=== PATIENT | male | born 1965 | race Caucasian/White ===

== ENCOUNTER 2022-03-06 18:35 | Emergency (ER) | payer OTHER, SELFPAY ==
--- NOTE | ~2022-03-06 | US_ITS ---
EXAMINATION: US VENOUS ULTRASOUND WITH DOPPLER LOWER EXTREMITY, RIGHT CLINICAL INFORMATION: History of DVT with pain and swelling in the right lower extremity. COMPARISON: None TECHNIQUE: Ultrasound of the deep veins is performed from the hip to the calf with compression sonography and color and pulse Doppler assessment. Spectral analysis with color-flow imaging is performed. FINDINGS: There is normal venous compression and respiratory variation and augmented flow. The visualized common femoral vein, superficial femoral vein, profunda femoral vein, popliteal vein, and the trifurcation region shows no evidence of deep venous thrombosis. There is no significant popliteal fossa cyst. If the patient's symptoms persist, followup ultrasound in 5 days 7 days might be of value to exclude proximal propagation from a non-visualized calf vein. US/US venous duplex LE RT IMPRESSION: No DVT demonstrated in the right lower extremity.
[2022-03-06 19:38] VITALS: BP 165/105; PULSE 85; RESP 18; TEMP 36.7; O2SAT 97; BMI 32.5
--- NOTE | 2022-03-06 19:44 | ECG_ITS ---
Test Reason : CHEST PAIN Blood Pressure : / mmHG Vent. Rate : 080 BPM Atrial Rate : 080 BPM P-R Int : 196 ms QRS Dur : 102 ms QT Int : 368 ms P-R-T Axes : -25 037 043 degrees QTc Int : 424 ms Normal sinus rhythm RSR' or QR pattern in V1 suggests right ventricular conduction delay Otherwise normal ECG When compared with ECG of 14-MAR-2014 09:13, [place] interval has decreased T wave amplitude has increased in Anterior leads Referred By: Generic ED Physician Electronically Signed By:ODALYS MEANS MD
[2022-03-06 20:10] LABS: MANUAL DIFF FLAG NO
[2022-03-06 20:29] LABS: Alanine Aminotransferase 24 U/L (0-40); Albumin Level 4.5 g/dL (3.5-5.0); Alkaline Phosphatase 85 U/L (39-117); Anion Gap 14 (12-20); Aspartate Amino Transferase 29 U/L (5-37); Bilirubin Total 0.9 mg/dL (0.0-1.0); Blood Urea Nitrogen 10 mg/dL (9-16); Calcium 9.5 mg/dL (8.4-10.2); Carbon Dioxide 24 mmol/L (22-29); Chloride 106 mmol/L (96-108); Creatinine Clr Calc Pharmacy 123.2; Estimated Glomerular Filt Rate > 60; Glucose Random 99 mg/dL (60-115); Magnesium 2.2 mg/dL (1.6-2.6); Potassium 3.9 mmol/L (3.3-5.1); Sodium 140 mmol/L (135-145)
[2022-03-06 20:31] LABS: Basophils Absolute Auto 0.1 X10*3/uL (0.0-0.2); Basophils Percent Auto 1.2 % (0-2); Eosinophils Absolute Auto 0.1 X10*3/uL (0.0-0.4); Eosinophils Percent Auto 0.9 % (0-4); Hemoglobin 14.8 g/dl (14.0-18.0); Imm Gran Abs Auto 0.12 X10*3/uL (0.00-0.03); Imm Gran Pct Auto 1.3 % (0.0-0.4); Lymphocytes Absolute Auto 1.5 X10*3/uL (1.2-4.9); Lymphocytes Percent Auto 15.9 % (20-40); Mean Corpuscular HGB Conc 34.4 g/dl (31.0-36.0); Mean Corpuscular Hemoglobin 29.7 pg (27.0-33.0); Mean Corpuscular Volume 86.2 fL (80.0-98.0); Mean Platelet Volume 9.2 fL (9.4-12.4); Monocytes Absolute Auto 0.8 X10*3/uL (0.1-1.2); Neutrophils Absolute Auto 6.8 x10*3/uL (2.0-8.3); Neutrophils Percent Auto 72.7 % (45-73); Platelet Count 252 X10*3/uL (160-400); Red Blood Count 4.99 X10*6/uL (4.60-5.80); Red Cell Distribution Width 13.3 % (11.0-16.0); White Blood Count 9.4 X10*3/uL (4.8-10.8)
[2022-03-06 20:32] LABS: Troponin-I High Sensitivity 6.3 ng/L (<3.5-35.0)
[2022-03-06 20:35] LABS: B Type Natriuretic Peptide 10 pg/mL (<100)
[2022-03-06 21:35] VITALS: BP 156/104; PULSE 85; RESP 18; TEMP 37.2; O2SAT 99
--- NOTE | 2022-03-06 21:37 | PC.NURSE ---
pt retriaged completed, pt reports worsening right leg pain, HTN - pt reports that his blood pressure has been running high recently despite taking medication as prescribed. pt declined tylenol.
--- NOTE | 2022-03-06 22:21 | ED_ITS ---
HPI - Extremity Problem General Chief complaint: Extremity Problem Stated complaint: Left leg pain history of blood clots Time Seen by Provider: 03/06/22 22:20 Source: patient Mode of arrival: ambulatory Limitations: no limitations History of Present Illness HPI Narrative: Patient with history of chronic osteoarthritis, history of PE, and hypertension comes here for chronic right knee pain radiating to the whole leg patient had left knee and hip replacement for same unable to follow with [facility] no leg swelling also complaining of mild chest pain off and on increased anxiety. No shortness of breath no cough no fever or chills Related Data Previous Rx's Medication Instructions Recorded tramadol 50 mg tablet 50 mg PO Q6H PRN pain #20 tabs 03/06/22 Allergies Allergy/AdvReac Type Severity Reaction Status Date / Time No Known Allergies Allergy Verified 03/06/22 19:38 [No Known Allergies*] Review of Systems Review of Systems: Yes all other systems are reviewed and are negative [facility] Social History Social History Advance Directives: No Physical Exam Vital Signs: Vital Signs: Last Vital Signs Temp 99 F 03/06/22 22:26 Pulse 80 03/06/22 22:26 Resp 16 03/06/22 22:26 BP 172/110 H 03/06/22 22:26 Pulse Ox 97 03/06/22 22:26 O2 Del Method 03/06/22 22:26 BMI result Body Mass Index 32.5 Appearance: Alert. Oriented X3. No acute distress. Eyes: PERRLA, No Nystagmus ENT: Pharynx normal. Oral Mucosa moist Neck: Normal inspection. Neck supple. CVS: Normal heart rate and rhythm. Pulses normal. Respiratory: No respiratory distress. Equal air entry bilateral, no wheezing/rales/rhonchi Abdomen: Soft and nontender. Bowel sounds are present, no mass palpable, no CVA tenderness Skin: Skin warm and dry. Normal skin color. Normal skin turgor. Extremities: No lower extremity edema. No calf tenderness right knee bone to bone with crepitation slight effusion right hip good range of movement Neuro: Oriented X 3. No motor deficit. Medications Administered Discontinued Medications Generic Name Dose Route Start Last Admin Trade Name Freq PRN Reason Stop Dose Admin Clonidine HCl 0.3 mg 03/06/22 22:30 03/06/22 22:45 Clonidine Hcl 0.1 Mg Tablet PO 03/06/22 22:31 0.3 mg ONCE ONE Administration Protocol Tramadol HCl 50 mg 03/06/22 22:30 03/06/22 22:46 Tramadol Hcl 50 Mg Tablet PO 03/06/22 22:31 50 mg ONCE ONE Administration MDM - Extremity (Nontraumatic) MDM Narrative Medical decision making narrative: Patient with chronic arthritis of the right knee with recent trauma Doppler of the right leg is negative for DVT lab workup stable patient had high blood pressure as he has not taken his evening dose of clonidine 0.3 mg which would give in the ER EKG without any ischemic changes discharge patient home on tramadol advised to follow-up with orthopedic Lab Data Attestation: I reviewed the patient's lab results. Result diagrams: 03/06/22 20:02 03/06/22 20:02 Labs: Lab Results 03/06/22 03/06/22 03/06/22 Range/Units 20:02 20:02 20:02 WBC 9.4 (4.8-10.8) X10*3/uL RBC 4.99 (4.60-5.80) X10*6/uL Hgb 14.8 (14.0-18.0) g/dl Hct 43.0 (42.0-52.0) % MCV 86.2 (80.0-98.0) fL MCH 29.7 (27.0-33.0) pg MCHC 34.4 (31.0-36.0) g/dl RDW 13.3 (11.0-16.0) % Plt Count 252 (160-400) X10*3/uL MPV 9.2 L (9.4-12.4) fL Immature Gran % (Auto) 1.3 H (0.0-0.4) % Neut % (Auto) 72.7 (45-73) % Lymph % (Auto) 15.9 L (20-40) % [place] % (Auto) 8.0 (2-11) % Eos % (Auto) 0.9 (0-4) % Baso % (Auto) 1.2 (0-2) % Lymph # (Auto) 1.5 (1.2-4.9) X10*3/uL [place] # (Auto) 0.8 (0.1-1.2) X10*3/uL Eos # (Auto) 0.1 (0.0-0.4) X10*3/uL Baso # (Auto) 0.1 (0.0-0.2) X10*3/uL Abs Immat Gran (auto) 0.12 H (0.00-0.03) X10*3/uL Absolute Neuts (auto) 6.8 (2.0-8.3) x10*3/uL Absolute Nucleated RBC 0.000 (0.0-0.012) X10*3/uL Nucleated RBC % (auto) 0.0 (0.0-0.2) /100WBC Sodium 140 (135-145) mmol/L Potassium 3.9 (3.3-5.1) mmol/L Chloride 106 (96-108) mmol/L Carbon Dioxide 24 (22-29) mmol/L Anion Gap 14 (12-20) BUN 10 (9-16) mg/dL Creatinine 0.77 (0.5-1.4) mg/dL Estim Creat Clear Calc 123.2 Estimated GFR > 60 Random Glucose 99 (60-115) mg/dL Calcium 9.5 (8.4-10.2) mg/dL Magnesium 2.2 (1.6-2.6) mg/dL Total Bilirubin 0.9 (0.0-1.0) mg/dL AST 29 (5-37) U/L ALT 24 (0-40) U/L Alkaline Phosphatase 85 (39-117) U/L Troponin I High Sens 6.3 (<3.5-35.0) ng/L B-Natriuretic Peptide (<100) pg/mL Total Protein 7.0 (6.5-8.0) g/dL Albumin 4.5 (3.5-5.0) g/dL 03/06/22 Range/Units 20:02 WBC (4.8-10.8) X10*3/uL RBC (4.60-5.80) X10*6/uL Hgb (14.0-18.0) g/dl Hct (42.0-52.0) % MCV (80.0-98.0) fL MCH (27.0-33.0) pg MCHC (31.0-36.0) g/dl RDW (11.0-16.0) % Plt Count (160-400) X10*3/uL MPV (9.4-12.4) fL Immature Gran % (Auto) (0.0-0.4) % Neut % (Auto) (45-73) % Lymph % (Auto) (20-40) % [place] % (Auto) (2-11) % Eos % (Auto) (0-4) % Baso % (Auto) (0-2) % Lymph # (Auto) (1.2-4.9) X10*3/uL [place] # (Auto) (0.1-1.2) X10*3/uL Eos # (Auto) (0.0-0.4) X10*3/uL Baso # (Auto) (0.0-0.2) X10*3/uL Abs Immat Gran (auto) (0.00-0.03) X10*3/uL Absolute Neuts (auto) (2.0-8.3) x10*3/uL Absolute Nucleated RBC (0.0-0.012) X10*3/uL Nucleated RBC % (auto) (0.0-0.2) /100WBC Sodium (135-145) mmol/L Potassium (3.3-5.1) mmol/L Chloride (96-108) mmol/L Carbon Dioxide (22-29) mmol/L Anion Gap (12-20) BUN (9-16) mg/dL Creatinine (0.5-1.4) mg/dL Estim Creat Clear Calc Estimated GFR Random Glucose (60-115) mg/dL Calcium (8.4-10.2) mg/dL Magnesium (1.6-2.6) mg/dL Total Bilirubin (0.0-1.0) mg/dL AST (5-37) U/L ALT (0-40) U/L Alkaline Phosphatase (39-117) U/L Troponin I High Sens (<3.5-35.0) ng/L B-Natriuretic Peptide 10 (<100) pg/mL Total Protein (6.5-8.0) g/dL Albumin (3.5-5.0) g/dL ECG Data Attestation EKG: I personally reviewed and interpreted this ECG as follows: Interpretation: Normal sinus rhythm heart rate 80 beats per minute normal interval normal axis no acute ST T wave changes Discharge Plan Discharge Clinical Impression: Osteoarthritis of right knee, Hypertension Patient Disposition: Home, Self-Care Instructions: Osteoarthritis (ED), Chronic Hypertension (ED) Additional Instructions: Take pain medication as prescribed wear the Ghulam wrap for support Follow with orthopedist and PCP Take your blood pressure medication daily on time Prescriptions: New tramadol 50 mg tablet 50 mg PO Q6H PRN (Reason: pain) Qty: 20 0RF Referrals: Kwasi Caraballo MD [Physician] - 2 weeks
[2022-03-06 22:26] VITALS: BP 172/110; PULSE 80; RESP 16; TEMP 37.2; O2SAT 97
[2022-03-06] MEDS: cloNIDine HCL 0.1 MG TABLET 0.3 MG PO (22:45)
[2022-03-06] MEDS: traMADoL HCL 50 MG TABLET PO (22:46)
== END 2022-03-06 22:45 | disposition home or self-care (01) ==
PROVIDERS: Emergency Provider Internal Medicine; PCP Psychiatry & Neurology Psychiatry
DX: M17.11 Unilateral primary osteoarthritis, right knee (principal); R60.0 Localized edema; I10 Essential (primary) hypertension; R06.02 Shortness of breath; Z79.899 Other long term (current) drug therapy
CPT/HCPCS: 36415; 80053; 83735; 83880; 84484; 85025; 93005; 93971; 99284

== ENCOUNTER 2022-03-29 17:23 | Outpatient (REF) | payer OTHER, SELFPAY ==
--- NOTE | ~2022-03-29 | XR_ITS ---
EXAMINATION: XR KNEES, STANDING AP BILATERAL XR KNEE, RIGHT CLINICAL INFORMATION: Knee pain COMPARISON: None TECHNIQUE: Bilateral standing AP view of the knees is performed. Right knee is also imaged in lateral and axial patella views. FINDINGS: Right: There are degenerative changes with mild joint narrowing and marginal osteophytes. There is a broad-based central osteophyte right medial femoral condyle. No erosive change or chondrocalcinosis. Probable trace/small suprapatellar effusion. No destructive process. No lateralization or tilting patella. There is spurring at quadriceps insertion patella. Left: There are mild marginal osteophytes. No significant joint narrowing and no erosive change or chondrocalcinosis. No destructive process. XR/XR knee RT 2V IMPRESSION: Right: -Degenerative changes with mild joint narrowing, marginal osteophytes, and central osteophyte medial side. -Small suprapatellar effusion. -Spurring at quadriceps insertion patella. Left: -Mild marginal osteophytes. No joint narrowing or erosive change.
--- NOTE | ~2022-03-29 | XR_ITS ---
EXAMINATION: XR KNEES, STANDING AP BILATERAL XR KNEE, RIGHT CLINICAL INFORMATION: Knee pain COMPARISON: None TECHNIQUE: Bilateral standing AP view of the knees is performed. Right knee is also imaged in lateral and axial patella views. FINDINGS: Right: There are degenerative changes with mild joint narrowing and marginal osteophytes. There is a broad-based central osteophyte right medial femoral condyle. No erosive change or chondrocalcinosis. Probable trace/small suprapatellar effusion. No destructive process. No lateralization or tilting patella. There is spurring at quadriceps insertion patella. Left: There are mild marginal osteophytes. No significant joint narrowing and no erosive change or chondrocalcinosis. No destructive process. XR/XR knee standing BI IMPRESSION: Right: -Degenerative changes with mild joint narrowing, marginal osteophytes, and central osteophyte medial side. -Small suprapatellar effusion. -Spurring at quadriceps insertion patella. Left: -Mild marginal osteophytes. No joint narrowing or erosive change.
== END 2022-03-29 17:24 | disposition home or self-care (01) ==
LOC: HO.HOSX 17:23
PROVIDERS: Visit Provider Physician Assistant
DX: M17.11 Unilateral primary osteoarthritis, right knee (principal)
CPT/HCPCS: 20610; 73560; 73565; 99202; J1020

== ENCOUNTER 2022-06-04 10:53 | Outpatient (REF) | payer OTHER, SELFPAY | END 2022-06-04 10:54 | disposition home or self-care (01) | LOC: HO.HOSX 10:53 | PROVIDERS: Visit Provider Physician Assistant | DX: Z13.89 Encounter for screening for other disorder (principal) ==

== ENCOUNTER 2023-05-24 18:26 | Emergency (ER) | payer OTHER, SELFPAY ==
--- NOTE | ~2023-05-24 | CT_ITS ---
EXAMINATION: CT ABDOMEN AND PELVIS WITHOUT CONTRAST CLINICAL INFORMATION: Rule out bilateral inguinal hernias COMPARISON: Abdominal ultrasound most recent August 2021 TECHNIQUE: Multidetector volumetric imaging was performed from the superior aspect of the liver through the pubic symphysis. Sagittal and coronal reformatted images were obtained on the technologist's workstation. This CT examination was performed using dose optimization techniques as appropriate, variously including the following: *Automated exposure control *Adjustment of mA and/or kV according to patient size (this includes techniques or standardized protocols for targeted exams where dose is matched to indication/reason for exam; i.e. extremities or head) *Use of iterative reconstruction technique DLP: 830 mGy-cm FINDINGS: LUNG BASES: The visualized lung bases are clear. Small right pleural calcification. LIVER, GALLBLADDER, AND BILIARY TREE: The liver is normal in size, shape, and attenuation. No focal hepatic lesion or biliary ductal dilatation is present. The gallbladder has been removed. PANCREAS: Mild fatty infiltration SPLEEN: Unremarkable. ADRENAL GLANDS: Unremarkable. KIDNEYS AND URETERS: The kidneys are normal in size, shape, and attenuation. No hydronephrosis, hydroureter. Small bilateral renal stones. No perinephric stranding. BLADDER: Unremarkable. GASTROINTESTINAL TRACT: Constipation. Diverticulosis of the colon. The small and large bowel are otherwise unremarkable. The appendix is not seen. Post surgical changes to the stomach. ABDOMINAL WALL: No hernia seen. There is left posterior peritoneal linear calcification. There is also linear calcification in the left anterior abdominal wall and anterior peritoneal surface in the pelvis. This may be related to old trauma or infection. LYMPH NODES: Normal. VASCULAR: Unremarkable. PELVIC VISCERA: Unremarkable. OSSEOUS STRUCTURES: Disc cages from L3-L4 to L5-S1. Degenerative changes of the spine. Left hip replacement. Battery in the left back and spinal stimulator lead in the lower thoracic spinal canal. CT/CT abdomen pelvis wo IV con IMPRESSION: No inguinal hernia. Left lower quadrant linear peritoneal calcifications, question from old trauma or infection. Small bilateral renal stones. Diverticulosis. Constipation. Fatty infiltration of pancreas. Fleischner guidelines were followed.
--- NOTE | ~2023-05-24 | US_ITS ---
EXAMINATION: US VENOUS ULTRASOUND WITH DOPPLER LOWER EXTREMITY, RIGHT CLINICAL INFORMATION: Swelling, pain. COMPARISON: Right lower extremity ultrasound 03/06/2022. TECHNIQUE: Ultrasound of the deep veins is performed from the hip to the calf with compression sonography and color and pulse Doppler assessment. Spectral analysis with color-flow imaging is performed. FINDINGS: There is normal venous compression and respiratory variation and augmented flow. The visualized common femoral vein, superficial femoral vein, profunda femoral vein, popliteal vein, and the trifurcation region shows no evidence of deep venous thrombosis. There is no significant popliteal fossa cyst. If the patient's symptoms persist, followup ultrasound in 5 days 7 days might be of value to exclude proximal propagation from a non-visualized calf vein. US/US venous duplex LE RT IMPRESSION: No DVT demonstrated in the right lower extremity.
[2023-05-24 18:32] VITALS: BP 155/110; PULSE 92; RESP 20; TEMP 37; O2SAT 97; BMI 31.9
--- NOTE | 2023-05-24 18:32 | ED_ITS ---
HPI - General Adult General Chief complaint: Abdominal Pain Stated complaint: Hernia pain Time Seen by Provider: 05/24/23 23:03 Source: patient Mode of arrival: ambulatory Limitations: no limitations History of Present Illness HPI narrative: Patient complaining of pain in right groin area for last 2 weeks history of hernia with mesh placement in the past no swelling no dysuria does not remember any significant injury pain gets worse on flexing his right thigh does have history of chronic pain in the back Related Data Previous Rx's Medication Instructions Recorded tramadol 50 mg tablet 50 mg PO Q6H PRN pain #20 tabs 03/06/22 cyclobenzaprine 10 mg tablet 10 mg PO Q8H #20 tabs 05/24/23 oxycodone 5 mg tablet 5 mg PO Q6H PRN pain #20 tabs 05/24/23 Allergies Allergy/AdvReac Type Severity Reaction Status Date / Time No Known Allergies Allergy Verified 05/24/23 18:36 [No Known Allergies*] Review of Systems 2 Review of Systems: Yes all other systems are reviewed and are negative [facility] Social History Social History Alcohol intake: never Patient Tobacco Use Status: Never used Tobacco Advance Directives: No Advance Directives Information Provided: No Current occupational status: employed 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 Oriented X3. No acute distress. ENT: Pharynx normal. Oral Mucosa moist Neck: Normal inspection. Neck supple. CVS: Normal heart rate and rhythm. Pulses normal. Respiratory: No respiratory distress. Equal air entry bilateral, Abdomen: Soft and nontender. Bowel sounds are present, no mass palpable, no CVA tenderness no hernia palpable Skin: Skin warm and dry. Normal skin color. Normal skin turgor. Extremities: No lower extremity edema. No calf tenderness tenderness left groin muscle increases on flexion of the right thigh Neuro: Oriented X 3. Course Course Course Narrative: RME: 57 yo male here for eval of I feel like a hernia popped upon getting out of bed 2 weeks ago. hx of bilateral inguinal hernia mesh repairs. additionally endorses right calf tenderness and pain to entire right leg. has history of DVT, not currently on AC. 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 Reports waiting at [facility] for twice this week without imaging. exam limited in triage. imaging ordered. Full HPI, ROS and PE to be performed by the primary ED provider. Medical Decision Making Medical Decision Making [facility] Narrative: Patient clinically right groin strain CT scan negative for hernia venous Doppler was also done to rule out DVT which was also negative will discharge patient on muscle relaxants and oxycodone for pain Differential Diagnosis Differential Diagnoses: The differential diagnosis associated with the presentation includes Groin strain/hernia Lab Data [facility] Lab Attestation statement: I reviewed the patient's lab results. 05/24/23 18:55 05/24/23 18:55 Labs: Lab Results 05/24/23 Range/Units 18:55 WBC 6.9 (4.8-10.8) X10*3/uL RBC 4.67 (4.60-5.80) X10*6/uL Hgb 14.1 (14.0-18.0) g/dl Hct 40.2 L (42.0-52.0) % MCV 86.1 (80.0-98.0) fL MCH 30.2 (27.0-33.0) pg MCHC 35.1 (31.0-36.0) g/dl RDW 13.2 (11.0-16.0) % Plt Count 235 (160-400) X10*3/uL MPV 8.4 L (9.4-12.4) fL Immature Gran % (Auto) 0.3 (0.0-0.4) % Neut % (Auto) 57.6 (45-73) % Lymph % (Auto) 29.5 (20-40) % [place] % (Auto) 7.6 (2-11) % Eos % (Auto) 3.3 (0-4) % Baso % (Auto) 1.7 (0-2) % Lymph # (Auto) 2.0 (1.2-4.9) X10*3/uL [place] # (Auto) 0.5 (0.1-1.2) X10*3/uL Eos # (Auto) 0.2 (0.0-0.4) X10*3/uL Baso # (Auto) 0.1 (0.0-0.2) X10*3/uL Abs Immat Gran (auto) 0.02 (0.00-0.03) X10*3/uL Absolute Neuts (auto) 4.0 (2.0-8.3) x10*3/uL Absolute Nucleated RBC 0.000 (0.0-0.012) X10*3/uL Nucleated RBC % (auto) 0.0 (0.0-0.2) /100WBC Sodium 143 (135-145) mmol/L Potassium 3.9 (3.3-5.1) mmol/L Chloride 108 (96-108) mmol/L Carbon Dioxide 27 (22-29) mmol/L Anion Gap 12 (12-20) BUN 11 (9-16) mg/dL Creatinine 0.89 (0.5-1.4) mg/dL Estim Creat Clear Calc 101.2 Estimated GFR > 60 Random Glucose 92 (60-115) mg/dL Calcium 9.4 (8.4-10.2) mg/dL Independent Interpretation I performed an independent interpretation of an: Ultrasound and CT Scan Radiology Impression Discussion of test interpretation with radiology: I have reviewed the radiologist's reading. Discharge Plan Discharge Clinical Impression: Strain of right groin Patient Disposition: Home, Self-Care Instructions: Groin Strain (ED) Additional Instructions: Apply ice pack Take pain medication muscle relaxant as prescribed Follow-up with your PCP as needed Prescriptions: New cyclobenzaprine 10 mg tablet 10 mg PO Q8H Qty: 20 0RF oxycodone 5 mg tablet 5 mg PO Q6H PRN (Reason: pain) Qty: 20 0RF Rx Instructions: Partial Fill upon patient request. No Action tramadol 50 mg tablet 50 mg PO Q6H PRN (Reason: pain) Qty: 20 0RF
[2023-05-24 18:59] LABS: MANUAL DIFF FLAG NO
[2023-05-24 19:00] LABS: Basophils Absolute Auto 0.1 X10*3/uL (0.0-0.2); Basophils Percent Auto 1.7 % (0-2); Eosinophils Absolute Auto 0.2 X10*3/uL (0.0-0.4); Eosinophils Percent Auto 3.3 % (0-4); Hematocrit 40.2 % (42.0-52.0); Hemoglobin 14.1 g/dl (14.0-18.0); Imm Gran Abs Auto 0.02 X10*3/uL (0.00-0.03); Imm Gran Pct Auto 0.3 % (0.0-0.4); Lymphocytes Percent Auto 29.5 % (20-40); Mean Corpuscular HGB Conc 35.1 g/dl (31.0-36.0); Mean Corpuscular Hemoglobin 30.2 pg (27.0-33.0); Mean Corpuscular Volume 86.1 fL (80.0-98.0); Mean Platelet Volume 8.4 fL (9.4-12.4); Monocytes Absolute Auto 0.5 X10*3/uL (0.1-1.2); Monocytes Percent Auto 7.6 % (2-11); Neutrophils Percent Auto 57.6 % (45-73); Platelet Count 235 X10*3/uL (160-400); Red Blood Count 4.67 X10*6/uL (4.60-5.80); Red Cell Distribution Width 13.2 % (11.0-16.0); White Blood Count 6.9 X10*3/uL (4.8-10.8)
[2023-05-24 19:11] LABS: Anion Gap 12 (12-20); Blood Urea Nitrogen 11 mg/dL (9-16); Calcium 9.4 mg/dL (8.4-10.2); Carbon Dioxide 27 mmol/L (22-29); Chloride 108 mmol/L (96-108); Creatinine Clr Calc Pharmacy 101.2; Estimated Glomerular Filt Rate > 60; Glucose Random 92 mg/dL (60-115); Potassium 3.9 mmol/L (3.3-5.1); Sodium 143 mmol/L (135-145)
[2023-05-24 21:29] VITALS: BP 172/110; PULSE 73; RESP 16; TEMP 36.6; O2SAT 97
[2023-05-24 23:22] VITALS: BP 158/100; PULSE 78; RESP 16; O2SAT 98
[2023-05-24] MEDS: oxyCODONE HCl Immed Release 5 MG TABLET 10 MG PO (23:28)
[2023-05-24] MEDS: Cyclobenzaprine HCl 10 MG TABLET PO (23:28)
== END 2023-05-24 23:31 | disposition home or self-care (01) ==
PROVIDERS: Physician Assistant Medical; Emergency Provider Internal Medicine
DX: R10.31 Right lower quadrant pain (principal); M54.50 Low back pain, unspecified; R60.0 Localized edema; Z79.899 Other long term (current) drug therapy
CPT/HCPCS: 36415; 74176; 80048; 85025; 93971; 99283; 99284

== ENCOUNTER 2025-01-29 14:48 | Emergency (ER) | payer OTHER, SELFPAY ==
--- NOTE | ~2025-01-29 | XR_ITS ---
EXAMINATION: XR LUMBOSACRAL SPINE CLINICAL INFORMATION: fall, pain COMPARISON: CT performed May 24, 2023 TECHNIQUE: Three views of the lumbosacral spine. FINDINGS: Generator projects over the left lower back with wires extending up to the thoracic region. Bilateral total hip replacement has been performed. Numerous surgical clips are present along the anterior left lumbar spine. There are 5 non-rib bearing lumbar segments. Vertebral body height is preserved without evidence of fracture. T12-L1: There is mild disc space narrowing and endplate osteophytes and sclerosis. L1-L2: There is mild grade 1 retrolisthesis, mild disc space narrowing, and anterior osteophytes L2-L3: There is mild grade 1 retrolisthesis and anterior osteophytes with mild disc space narrowing. There is moderate facet arthropathy. L3-L4: There are interbody spacers with subsidence into L3 and minimally at L4. There is bony bridging posteriorly. There is mild to moderate facet arthropathy. L4-L5: There is no right spacers with bridging bone and subsidence into L4 and L5. There is mild to moderate facet arthropathy. L5-S1: There are interbody spacers with subsidence into L4 and mature bridging bone. There is moderate facet arthropathy. XR/XR lumbar spine 2-3V IMPRESSION: No acute fracture. Interbody fusion L3-L4-L5-S1. Electronically signed by: Eriberto Sal MD 01/29/2025 03:32 PM EDT
--- NOTE | 2025-01-29 15:07 | ED_ITS ---
HPI - General Adult General Chief complaint: Back Pain/Injury Stated complaint: Allergic Reaction Time Seen by Provider: 01/29/25 15:50 Source: patient Mode of arrival: ambulatory Limitations: no limitations History of Present Illness ED Provider: Eun Malik APRN HPI narrative: 59yo male with PMH of CKD, chronic jarrett, chronic UTIs, CAD, s/p gastric sleeve, lumbar fusion (also has stimulator) here with lower back pain after a fall down stairs. Denies hitting head or LOC. No radiation of the pain. No numbness, tingling, weakness of the extremities. No numbness in the groin. No bowel or bladder incontinence. No fevers, chills. Taking tylenol at home with continued pain. Doesn't feel lidoderm patches help the pain. Related Data Previous Rx's ?Medication ?Instructions ?Recorded tramadol 50 mg tablet 50 mg PO Q6H PRN pain #20 ta bs 03/06/22 cyclobenzaprine 10 mg tablet 10 mg PO Q8H #20 tabs oxycodone 5 mg tablet 5 mg PO Q6H PRN pain #20 tab s 05/24/23 cyclobenzaprine 10 mg tablet 10 mg PO TID PRN muscle s pasm #9 01/29/25 tabs Allergies Allergy/AdvReac Type Severity Reaction Status Date / Time NGHIA Inhibitors Allergy Angioedema Verified 01/29/25 15:11 bee pollen (bee stings) Allergy Anaphylaxis Verified 01/29/25 15:11 metformin Allergy Angioedema Verified 01/29/25 15:11 Review of Systems Review of Systems: Yes all other systems are reviewed and are negative Constitutional: Constitutional: Reports no additional constitutional complaints, Denies body ache(s), Denies chills, Denies fever(s), Denies headache(s) and Denies weakness Eyes: Eyes: Reports no additional eye complaints and Denies change in vision ENT: Reports system reviewed and no additional complaints, except as documented, Denies dizziness, Denies headache(s), Denies nasal congestion, Denies nasal discharge and Denies neck pain Cardiovascular: Cardiovascular: Reports no additional cardiovascular complaints, Denies chest pain, Denies leg edema and Denies dyspnea Respiratory: Respiratory: Reports no additional respiratory complaints, Denies cough and Denies dyspnea Gastrointestinal: Gastrointestinal: Reports no additional gastrointestinal complaints, Denies abdominal pain, Denies diarrhea, Denies nausea and Denies vomiting Genitourinary: Genitourinary: Denies urinary incontinence Musculoskeletal: Musculoskeletal: Reports no additional musculoskeletal complaints, Denies back pain, Denies arthralgias, Denies joint swelling, Denies neck pain, Denies numbness and Denies tingling Integumentary/Breasts: Skin/Breast: Reports system reviewed and no additional complaints, except as docu and Denies rash Neurologic: Reports system reviewed and no additional complaints, except as documented, Denies Abnormal speech present, Denies dizziness, Denies headache(s), Denies numbness, Denies tingling and Denies weakness PMFSH Past Medical History Attestation statement: The following information was validated with the patient. 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 Physical Exam ED Vital Signs: Vital Signs - 24 hr 01/29/25 15:08 01/29/25 16:17 Temperature 97.8 F 97.8 F Pulse Rate 73 73 Respiratory Rate 18 18 Blood Pressure 144/84 H 144/84 H Pulse Oximetry 97 97 Oxygen Delivery Method Room Air Room Air BMI result Body Mass Index 30.4 Const General: cooperative, healthy appearing, comfortable and no acute distress Orientation/consciousness: patient oriented x3 Limitations: no limitations HENMT Head: Yes normal to inspection Ears: hearing grossly normal bilaterally General nose exam: Normal external nose present Face and sinus: Yes normal facial exam Mouth: Normal oral and palatal mucosa present Throat: Yes posterior oropharynx normal Eyes General: appearance normal, both eyes and all related structures Pupils: Equal, round and reactive pupils present Neck Neck: Yes normal visual inspection Chest Chest palpation & inspection: normal inspection of the chest Resp Effort & Inspection: normal respiratory effort Auscultation: clear to auscultation bilaterally Cardio Rate: regular rate Rhythm: regular rhythm Peripheral pulses: Peripheral pulses 2+ throughout GI Inspection: Yes normal to inspection Palpation (GI): Soft to palpation and nontender Auscultation: normal bowel sounds General: Yes no CVA tenderness Back/Spine/Pelvis Other: TTP right lumbar soft tissue with no midline tenderness/step offs or deformities, worsened with flexion of the spine Back: no CVA tenderness Thoracic/Lumbar Spine: thoracic and lumbar spine normal to inspection Skin General skin exam: no rashes or lesions noted Neuro General: patient oriented x3, no focal motor deficits and normal sensation to monofilament Cranial nerves: Yes Equal, round and reactive pupils present Cognition (Neuro): normal cognition Speech: No Abnormal speech present Gait exam (Neuro): Normal gait present Motor exam (neuro): 5/5 motor strength present throughout Deep tendon reflexes (DTR's): Right patellar reflex intensity grade: 2+ and Left patellar reflex intensity grade: 2+ Extrem General: Yes normal to inspection Course Course Course Narrative: 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 Deferred additional HPI, ROS, PE to primary provider. 59yo male with PMH of CKD, chronic jarrett, chronic UTIs, CAD, s/p gastric sleeve here with lower back pain after a fall down stairs. Denies hitting head or LOC. Will obtain x-rays. VSS Medical Decision Making Medical Decision Making MDM Narrative: 59yo male with PMH of CKD, chronic jarrett, chronic UTIs, CAD, s/p gastric sleeve, lumbar fusion (also has stimulator) here with lower back pain after a fall down stairs. Denies hitting head or LOC. No radiation of the pain. No numbness, tingling, weakness of the extremities. No numbness in the groin. No bowel or bladder incontinence. No fevers, chills. Taking tylenol at home with continued pain. Doesn't feel lidoderm patches help the pain. TTP right lumbar soft tissue with no midline tenderness/step offs or deformities, worsened with flexion of the spine Normal neuro exam with no focal deficits or red flag synptoms D/t reports trauma will check x-ray Differential Diagnosis Differential Diagnoses: The differential diagnosis associated with the presentation includes Contusion Low suspicion for fracture, hardware issue Admission/Observation Consideration of admission/observation: Escalation of care including admission/observation considered Independent Interpretation I performed an independent interpretation of an: Plain X-Ray Interpretation: I independently viewed the x-ray and agree with the radiology report Radiology Impression Discussion of test interpretation with radiology: I have reviewed the radiologist's reading. 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 FINDINGS: Generator projects over the left lower back with wires extending up to the thoracic region. Bilateral total hip replacement has been performed. Numerous surgical clips are present along the anterior left lumbar spine. There are 5 non-rib bearing lumbar segments. Vertebral body height is preserved without evidence of fracture. T12-L1: There is mild disc space narrowing and endplate osteophytes and sclerosis. L1-L2: There is mild grade 1 retrolisthesis, mild disc space narrowing, and anterior osteophytes L2-L3: There is mild grade 1 retrolisthesis and anterior osteophytes with mild disc space narrowing. There is moderate facet arthropathy. L3-L4: There are interbody spacers with subsidence into L3 and minimally at L4. There is bony bridging posteriorly. There is mild to moderate facet arthropathy. L4-L5: There is no right spacers with bridging bone and subsidence into L4 and L5. There is mild to moderate facet arthropathy. L5-S1: There are interbody spacers with subsidence into L4 and mature bridging bone. There is moderate facet arthropathy. XR/XR lumbar spine 2-3V IMPRESSION: No acute fracture. Interbody fusion L3-L4-L5-S1. Electronically signed by: Eriberto Sal MD 01/29/2025 03:32 PM EDT Discharge Plan Discharge Clinical Impression: Lumbar contusion Patient Disposition: Home, Self-Care Instructions: Contusion in Adults (ED) Additional Instructions: Your x-rays show no fracture Continue tylenol Continue the lidoderm patches Ice to the area Follow-up with your PCP for any continued symptoms Prescriptions: New cyclobenzaprine 10 mg tablet 10 mg PO TID PRN (Reason: muscle spasm) Qty: 9 0RF No Action tramadol 50 mg tablet 50 mg PO Q6H PRN (Reason: pain) Qty: 20 0RF cyclobenzaprine 10 mg tablet 10 mg PO Q8H Qty: 20 0RF oxycodone 5 mg tablet 5 mg PO Q6H PRN (Reason: pain) Qty: 20 0RF Rx Instructions: Partial Fill upon patient request. Referrals: ED Physician,Generic [Physician, Emergency Medicine] Interventions: ED Discharge Assessment Last Done: 01/29/25 16:17 Discharge Date/Time: 01/29/25 16:18 Print Language: Portuguese
[2025-01-29 15:08] VITALS: BP 144/84; PULSE 73; RESP 18; TEMP 36.6; O2SAT 97; BMI 30.4
[2025-01-29 16:17] VITALS: BP 144/84; PULSE 73; RESP 18; TEMP 36.6; O2SAT 97
--- OUTSIDE RECORDS SUMMARY | 2025-01-29 17:11 | XMS_ITS | Continuity of Care Document ---
Author Name [facility], Medical Address [address] [place] [address] Organization Unknown Address [address] [place] [address] Medications No known medications Problems No known problems
--- OUTSIDE RECORDS SUMMARY | 2025-01-29 17:11 | XMS_ITS ---
Author Name [facility] Organization Unknown History of Medication Use Medication Directions Dispensed Refills Start Date End Date Stat ertapenem 1 g in sodium chloride 0.9 % 50 mL IVPB Infuse 1 g into a venous catheter 1 (one) time each day at the same time for 4 days. 08/11/2024 active omeprazole (PriLOSEC) [address] capsule Take 1 capsule (40 mg total) by mouth 1 (one) time each day. 07/24/2024 active gabapentin (NEURONTIN) 600 mg tablet Take 800 mg by mouth 3 (three) times a day. 05/18/2024 active acetaminophen (TYLENOL) 500 mg tablet Take 2 tablets (1,000 mg total) by mouth every 8 (eight) hours. 05/04/2024 active dicyclomine (BENTYL) 10 mg capsule Take 2 capsules (20 mg total) by mouth 2 (two) times a day. 04/13/2024 active famotidine (PEPCID) 20 mg tablet Take 1 tablet (20 mg total) by mouth 2 (two) times a day. 04/13/2024 active multivitamin tablet Take 1 tablet by mouth 1 (one) time each day. 04/13/2024 active tamsulosin (FLOMAX) 0.4 mg 24 hr capsule Take 1 capsule (0.4 mg total) by mouth 1 (one) time each day. 04/13/2024 active traZODone (DESYREL) 150 mg tablet Take 1 tablet (150 mg total) by mouth at bedtime. 04/13/2024 active QUEtiapine (SEROquel) 100 mg tablet Take 2 tablets (200 mg total) by mouth at bedtime. 07/01/2023 active ergocalciferol (VITAMIN D-2) 1,250 mcg (50,000 unit) capsule Take 1 capsule (50,000 Units total) by mouth 1 (one) time per week. active sertraline (ZOLOFT) 25 mg tablet Take 3 tablets (75 mg total) by mouth 1 (one) time each day. active verapamiL (CALAN) 120 mg tablet Take 1 tablet (120 mg total) by mouth 1 (one) time each day. active Allergies Allergen Reaction Severity Comment Documented Date Source Statu s METFORMIN SWELLING 03/26/2024 [facility] active NGHIA INHIBITORS SWELLING [facility] BEESIX SWELLING [facility] Problems Problem Status Onset Date Problem Type Date of Resoluti on Source Low back pain active 2020-09-23 ProblemAct [facility] Vitamin D deficiency active 2020-05-02 ProblemAct [facility] Urinary tract infection due to ESBL Klebsiella active 2024-08-10 ProblemAct [facility] Obstructive sleep apnea active 2020-02-16 ProblemAct [facility] PE (pulmonary thromboembolism) ([facility] V24, [facility] V28) active 2020-11-07 ProblemAct [facility] Eating disorder active 2020-10-[address] _[facility] Status post total replacement of left hip active 2020-09-23 ProblemAct [facility] Asthma active 2012-07-31 ProblemAct [facility] AN Cyst of left kidney active 2017-08-19 ProblemAct [facility] Major depression active 2012-07-31 ProblemAct C T_THSFRAN Chronic diarrhea active 2012-07-31 ProblemAct C T_THSFRAN Congenital hip deformity active 2018-10-31 ProblemAct [facility] Subclinical hypothyroidism active 2020-05-02 ProblemAct [facility] Chronic back pain active 2012-07-31 ProblemAct [facility] IBS (irritable bowel syndrome) active 2014-11-10 ProblemAct [facility] Generalized anxiety disorder active 2012-07-31 ProblemAct [facility] Nephrolithiasis active 2020-09-[address] _[facility]AN Sepsis ([facility] V24, [facility] V28) active 2024-08-04 ProblemAct [facility] Neurogenic bladder active 2012-09-18 ProblemAct [facility] Narcotic dependence ([facility] V24, [facility] V28) active 2012-07-31 ProblemAct [facility] Type 2 diabetes mellitus ([facility] V24, [facility] V28) active 2012-09-18 ProblemAct [facility] Hypertension active 2012-07-31 ProblemAct [facility] SFR[facility] Immunizations Vaccine Date Source Lot Number Status COVID-19 (Pfizer/BlizuuirAllSource Analysis) 12yo and older 03/07/2024 [facility]_T HSFRAN completed Influenza trivalent, 0.5mL, preservative free (Fluarix; FluLaval; Fluzone) ages 6mo and older (Afluria) 3 years and older 03/07/2024 [facility]_S[facility]AN [id number] completed Tdap Tetanus diptheria acell ular pertussis (Boostrix; Adacel) 7yo and older 05/31/2023 CT_SFRAN [id number] completed Influenza Quadravalent, MDCK , 0.5ml, preservative free (Flucelvax) 6mo and older 12/20/2022 CT_SFRAN [id number] completed Tdap Tetanus diptheria acell ular pertussis (Boostrix; Adacel) 7yo and older 08/19/2022 [facility]_S[facility]AN [id number] completed Pneumococcal conjugate 20 va lent (Prevnar 20, PCV 20) 2mo and older 03/05/2022 CT_S[facility]AN [id number] comple simón [place] (ages 12 & older) Snow alent, COVID-19 01/11/2022 [facility]_S[facility]AN [id number] completed SARS-COV-2 (COVID-19) Vaccine, Unspecified 01/11/2022 [facility]_T HS[facility] [id number] completed Zoster recombinant (Shingrix ) 19yo and older 01/11/2022 CT_SFRAN [id number] completed Influenza Quadravalent, MDCK , 0.5ml, preservative free (Flucelvax) 6mo and older 12/28/2021 CT_SFRAN [id number] completed Influenza, Unspecified 12/13/2021 CT_SFRAN co mpleted Influenza Quadravalent, MDCK , 0.5ml, preservative free (Flucelvax) 6mo and older 12/19/2020 CT_SFRAN [id number] completed Influenza Quadravalent, MDCK , 0.5ml, preservative free (Flucelvax) 6mo and older 01/15/2020 [facility] [id number] completed Influenza trivalent, with pr eservative (Fluzone; Afluria) 6mo and older 01/15/2019 [facility] UNK completed Zoster recombinant (Shingrix ) 19yo and older 05/23/2018 [facility] completed Influenza Quadravalent, MDCK , 0.5ml, preservative free (Flucelvax) 6mo and older 05/01/2018 [facility] [id number] completed Influenza Quadrivalent, 0.5m l, preservative free (Fluarix; FluLaval; Fluzone) ages 6mo and older (Afluria) 3yo and older 12/06/2017 [facility] [id number] completed Zoster recombinant (Shingrix ) 19yo and older 12/06/2017 [facility] [id number] completed Influenza Quadrivalent, 0.5m l, preservative free (Fluarix; FluLaval; Fluzone) ages 6mo and older (Afluria) 3yo and older 11/08/2016 [facility] [id number] completed Influenza trivalent, 0.5mL, preservative free (Fluarix; FluLaval; Fluzone) ages 6mo and older (Afluria) 3 years and older 11/18/2015 [facility] [id number] completed Tdap Tetanus diptheria acell ular pertussis (Boostrix; Adacel) 7yo and older 09/09/2015 [facility] [id number] completed Influenza trivalent, 0.5mL, preservative free (Fluarix; FluLaval; Fluzone) ages 6mo and older (Afluria) 3 years and older 12/09/2014 [facility] [id number] completed Pneumococcal polysaccharide 23 valent (Pneumovax 23) 2yo and older 09/07/2014 [facility] pleted Influenza trivalent, with pr eservative (Fluzone; Afluria) 6mo and older 12/05/2013 [facility] [id number] completed Pneumococcal polysaccharide 23 valent (Pneumovax 23) 2yo and older 01/29/2013 [facility] com pleted Influenza trivalent, with pr eservative (Fluzone; Afluria) 6mo and older 11/26/2012 [facility] UNK completed Influenza trivalent, with pr eservative (Fluzone; Afluria) 6mo and older 01/08/2012 [facility] 1226 3P completed Influenza, Unspecified 01/08/2012 [facility] co mpleted Tdap Tetanus diptheria acell ular pertussis (Boostrix; Adacel) 7yo and older 08/27/2011 [facility] [id number] completed Influenza trivalent, with pr eservative (Fluzone; Afluria) 6mo and older 01/10/2010 [facility] UNK completed Pneumococcal polysaccharide 23 valent (Pneumovax 23) 2yo and older 07/29/2008 [facility] com pleted
--- OUTSIDE RECORDS SUMMARY | 2025-01-29 17:11 | XMS_ITS | Data Portability ---
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 I provided real time medical direction for this encounter and was immediately available to provide additional phone based assistance as needed. History as noted by guest services coordinator. Pt with history of HTN and DM. He was recently admitted for L sided chest pain and had a negative work up, discharged home about 1 week ago. No evidence of NC of ACS. Pt is scheduled for outpatient ETT. Pt reports that since discharge he continues to have constant L sided chest pain with radiation into his L arm and leg. No dyspnea. He also reports that over the last 4 days he has developed a cough productive of green/yellow sputum, and notes that the cough worsens his chest pain. He denies any fevers, chills or dyspnea. Pt also notes urinary frequency. On exam, pt appears comfortable, no distress. Vitals ok, lungs clear. L chest wall with diffuse tenderness, which reproduces and worsens his current, constant pain. EKG with NSR, no evidence of acute ischemia. POC urine dip negative for UTI or glucose. Rapid Covid and Flu negative. Impression; Pt with atypical, constant L sided chest pain with L upper and lower extremity pain that has been present for several weeks. He is s/p recent admission and had a negative cardiac work up and is scheduled for outpatient ETT. Pt's pain is reproducible with palpation of his chest wall. Pt also has a recent new cough which also worsens his pain although he denies any SOB or recent fevers. EKG today is negative for evidence of acute ischemia. Pt also describing urinary frequency, but today's urine dip is negative. Rapid Covid and Flu swabs today also negative. Etiology of pt's constant atypical CP is not clear, but appears to be most likely related to his chest wall. I prescribe benzonatate as well as guafenesin for his cough. Pt told to keep appointment for his outpatient ETT. Pt also scheduled for PCP follow up visit tomorrow which he is instructed to keep as well. Pt is informed that the benzonatate may not be covered by insurance and he may need to pay out of pocket but wants the prescription anyway. Pt instructed to seek medical attention right away with any worsening or new symptoms, which are reviewed with him. [email or web address] Not available 01/29/2023 13:52:35 05/08/2024 05/08/2024 I provided real -time medical direction via phone for this encounter, and was available for additional phone based assistance as needed. I have reviewed and agree with the Assessment and Plan as documented by the Flatwork Supervisor. We discussed the diagnostic uncertainty of home visits and the risk associated with this. The patient given the opportunity to ask questions. Patient has anemia and has had black stools and significant epistaxis/ the melena can be from swallowed epistaxis- but cannot r/o GIB in home-unable to do stool guaiac. WE do not have baseline labs for him, offered to check labs -r/o dangerous anemia/ gina-he declines lab draw at home - insists further workup per ED- patient request to go to [facility]/ report called to ED Xpect at [facility] regarding all issues- possible GI bleed/ leg swelling/pain/ hematoma/ r/o dvt and urinary retention [email or web address] Not available 05/08/2024 15:16:51 12/05/2024 12/05/2024 I have reviewed and agree with the Assessment and Plan as documented by the Flatwork Supervisor. I provided real-time medical direction via phone for this encounter, and was available for additional phone based assistance as needed. I would add/emphasize: Pt seen for erythema swelling and discomfort of the R conjunctiva. no trauma reported, no FB sensation, no change in vision per report. Low suspicion for ocular pathology on basis of exam hx and imaging. Will tx for possible conjunctivitis w/ e-mycin ointment and advise close outpt f/u. Red flags for sxs that should prompt presentation to the ED discussed. [email or web address] Not available 12/06/2024 11:46:08 Plan of Treatment Reminders Order Date Submit Date Provider Last Modified By Organization Details Last Modified Time Details Appointments None recorded. Lab urinalysis, dipstick 2022 023 [facility], [address] [place] [address], [id number] 3 13:02:36 rapid flu [facility] [address] [place] [address], [id number] 3 13:10:29 rapid SARS CoV 2 Ag, QL IA, respiratory specimen 2022 [facility], [address] [place] [address], [id number] 3 13:10:27 Referral None recorded. Procedures None recorded. Surgeries None recorded. Imaging electrocard iogram 2022 023 [facility], [address] [place] [address], [id number] 12:54:03 Medication Orders erythromyci n 5 mg/gram (0.5 %) eye ointment 2024 025 [facility] #[id number], [address] [place], [address], 15:25:30 benzonatate 200 mg capsule 2022 023 [facility] Not available 13:10:29 guaifenesin ER 1,200 mg tablet, extended release 12 hr 2022 023 [facility] Not available 13:10:29 Patient TargetsNo targets recorded. Patient InstructionsNo instructions recorded. Reason for Referral None Reported. Results Created Date Observation Date Name Description Value Unit Range Abnormal Flag Note LastModifiedBy Organization Detail LastModifiedTime 01/30/20 23 01/29/2023 rapid SARS CoV 2 Ag, QL IA, respi rator y speci men rapid SARS CoV 2 Ag, QL IA, respiratory specimen negati ve Not Available [facility] ed [address] [place] [address], [address] [place] [address] 01/29/2023 13:04:47 01/30/20 23 01/29/2023 rapid flu (A+B) Flu negati ve Not Available [facility] ed [address] [place] [address], [address] [place] [address] 01/29/2023 13:04:36 01/30/20 23 01/29/2023 urina lysis , dipst ick Leukocytes negati ve Not Available [facility] ed [address] [place] [address], [address] [place] [address] 01/29/2023 13:02:10 01/30/2001/29/2023 urina lysis , dipst ick Nitrite negati ve Not Available [facility] ed [address] [place] [address], [address] [place] [address] 01/29/2023 13:02:10 01/30/20 23 01/29/2023 urina lysis , dipst ick Glucose negati ve Not Available [facility] ed [address] [place] [address], [address] [place] [address] 01/29/2023 13:02:10 01/30/20 23 01/29/2023 elect rocar diogr am No observ ation record ed. btils [address], [address] [place] [address] 01/29/2023 12:54:01 Result Notes None recorded. Medical Equipment None Reported. Allergies Allergen ID Allergen Name Allergen Category Reaction Reaction Severity Criticality Documentation Date Start Date Code Code System Note Provider Name and Address Organization Details Recorded Time 13316 metformin medicatio n Not available Not available Not available 05/08/2024 6809 RxNorm Not Available [facility] - production 09:43:18 76121 Product containin g angiotens in-conver ting enzyme inhibitor (product) medicatio n Not available Not available Not available 05/08/2024 55521 009 SNOMED Not Available [facility] 13:20:33 12189 honey bee venom medicatio n Not available Not available Not available 11/04/2024 21309 7 RxNorm Not Available [facility] 13:20:33 Medications Name Sig Start Date Stop Date Status Note LastModified by Organization Details LastModified Time cyclobenzapr ine 10 mg tablet TAKE 1 TABLET BY MOUTH THREE TIMES A DAY active Not Available Not Available Not Available amoxicillin 500 mg capsule TAKE 1 CAPSULE BY MOUTH THREE TIMES A DAY FOR 7 DAYS active Not Available Not Available N ot Available neomycin-trice ymyxin-hydro joão 3.5 mg/mL-10,000 unit/mL-1 % ear solution INSTILL 2 DROPS TO AFFECTED EAR THREE TIMES DAILY FOR 10 DAYS active Not Available Not Available Not Available acetaminophe n 325 mg tablet TAKE 2 TABLETS BY MOUTH EVERY 6 HOURS NEEDED FOR PAIN. (LIMIT 4000MG OF TYLENOL/GHULAM TAMINOPHEN PER DAY) active Not Available Not Available No t Available gabapentin 600 mg tablet TAKE 1 TABLET BY MOUTH THREE TIMES DAILY active Not Available Not Available Not Available doxycycline hyclate 100 mg capsule TAKE 1 CAPSULE BY MOUTH TWO TIMES A DAY FOR 7 DAYS active Not Available Not Available N ot Available clindamycin HCl 300 mg capsule TAKE 1 CAPSULE BY MOUTH THREE TIMES A DAY FOR 10 DAYS active Not Available Not Available Not Available cefpodoxime 200 mg tablet TAKE 1 TABLET BY MOUTH EVERY 12 HOURS FOR 10 DAYS active Not Available Not Available Not Available benzonatate 200 mg capsule Take 1 capsule 3 times a day by oral route as needed for 10 days. 2022 active Not Available Not Available Not Avai lable Nystop 100,000 unit/gram topical powder USE TOPICALLY TWO TIMES A DAY FOR SEVEN DAYS. active Not Available Not Available Not Available senna 8.6 mg tablet TAKE 2 TABLETS BY MOUTH EVERY DAY AT BEDTIME NEEDED FOR CONSTIPATIO N active Not Available Not Available No t Available meloxicam 15 mg tablet TAKE 1 TABLET BY MOUTH EVERY DAY active Not Available Not Available No t Available sucralfate 1 gram tablet TAKE 1 TABLET BY MOUTH FOUR TIMES DAILY active Not Available Not Available Not Available ondansetron HCl 4 mg tablet TAKE 1 TABLET BY MOUTH EVERY 8 HOURS NEEDED FOR NAUSEA active Not Available Not Available No t Available clonidine HCl 0.3 mg tablet TAKE 1 TABLET BY MOUTH TWICE A DAY active Not Available Not Available No t Available sumatriptan 50 mg tablet TAKE 1 TABLET BY MOUTH AT ONSET OF MIGRAINE. MAY REPEAT DOSE 1 TIME AFTER 2 HOURS NEEDED. DO NOT EXCEED 200 MG WITHIN 24 HOURS active Not Available Not Available No t Available ciprofloxaci n 500 mg tablet TAKE 1 TABLET BY MOUTH TWICE A DAY FOR 10 DAYS active Not Available Not Available No t Available sulfamethoxa zole 800 mg-trimethop rim 160 mg tablet TAKE 1 TABLET BY MOUTH TWICE A DAY FOR 14 DAYS active Not Available Not Available No t Available omeprazole 40 mg capsule,zoe yed release active Not Available Not Available Not Available aspirin 81 mg tablet,delay ed release TAKE 1 TABLET BY MOUTH ONCE DAILY active Not Available Not Available No t Available tramadol 50 mg tablet TAKE 1 TABLET BY MOUTH EVERY 6 HOURS IF NEEDED FOR SEVERE PAIN FOR UP TO 3 DAYS active Not Available Not Available No t Available quetiapine 100 mg tablet TAKE 1 TO 2 TABLETS BY MOUTH AT BEDTIME active Not Available Not Available No t Available acetaminophe n 500 mg tablet TAKE 2 TABLETS (1,000 MG TOTAL) BY MOUTH EVERY 8 HOURS active Not Available Not Available No t Available oxycodone 15 mg tablet TAKE 1 TABLET BY MOUTH EVERY 6 HOURS NEEDED FOR PAIN FOR 3 DAYS active Not Available Not Available No t Available verapamil 120 mg tablet TAKE 1 TABLET BY MOUTH EVERY DAY active Not Available Not Available No t Available hydromorphon e 2 mg tablet TAKE 2 TABLETS BY MOUTH EVERY 8 HOURS NEEDED FOR PAIN active Not Available Not Available No t Available famotidine 20 mg tablet TAKE 1 TABLET BY MOUTH TWICE DAILY active Not Available Not Available No t Available lorazepam 0.5 mg tablet TAKE 1 TABLET BY MOUTH EVERY DAY NEEDED FOR ANXIETY. *MAY TAKE ADDITIONAL TABLET DAILY NEEDED FOR SEVERE ANXIETY. active Not Available Not Available No t Available tamsulosin 0.4 mg capsule TAKE 1 CAPSULE BY MOUTH EVERY NIGHT AT BEDTIME active Not Available Not Available No t Available trazodone 100 mg tablet TAKE 1 TO 2 TABLETS BY MOUTH AT BEDTIME active Not Available Not Available No t Available OneTouch Ultra Test strips USE 1 STRIP TWICE DAILY TO CHECK BLOOD SUGAR active Not Available Not Available Not Available cephalexin 500 mg capsule TAKE 1 CAPSULE BY MOUTH THREE TIMES A DAY FOR 7 DAYS active Not Available Not Available N ot Available erythromycin 5 mg/gram (0.5 %) eye ointment APPLY 1 CM RIBBON INTO THE LOWER CONJUNCTIVA L SAC(S) IN THE AFFECTED EYE(S) 3 TIMES PER DAY active Not Available Not Available No t Available Gas Relief (simethicone ) 80 mg chewable tablet TAKE 1 TABLET BY MOUTH EVERY 6 HOURS NEEDED FOR FLATULENCE FOR UP TO 30 DAYS. active Not Available Not Available No t Available trazodone 150 mg tablet TAKE 1 TO 2 TABLETS BY MOUTH AT BEDTIME active Not Available Not Available No t Available lidocaine 5 % topical patch APPLY 1 PATCH TOPICALLY TO THE SKIN DAILY REMOVE PATCHES AFTER 12 HOURS active Not Available Not Available No t Available oxybutynin chloride ER 5 mg tablet,exten ded release 24 hr TAKE 1 TABLET BY MOUTH EVERY DAY active Not Available Not Available No t Available omeprazole 20 mg capsule,zoe yed release TAKE 1 CAPSULE BY MOUTH DAILY active Not Available Not Available Not Available hydroxyzine HCl 25 mg tablet TAKE 1 TABLET BY MOUTH THREE TIMES A DAY NEEDED FOR ANXIETY active Not Available Not Available Not Available mupirocin 2 % topical ointment APPLY TOPICALLY TWICE A DAY FOR 10 DAYS active Not Available Not Available Not Available gabapentin 100 mg capsule TAKE 1 CAPSULE BY MOUTH 3 TIMES A DAY active Not Available Not Available Not Available ergocalcifer ol (vitamin D2) 1,250 mcg (50,000 unit) capsule TAKE 1 CAPSULE BY MOUTH 1 TIME A WEEK active Not Available Not Available Not Available epinephrine 0.3 mg/0.3 mL injection, auto-injecto r ADMINISTER 0.3 MG IN THE MUSCLE 1 TIME active Not Available Not Available No t Available ibuprofen 600 mg tablet active Not Available Not Available Not Available levofloxacin 750 mg tablet TAKE 1 TABLET BY MOUTH EVERY DAY active Not Available Not Available No t Available hydromorphon e 4 mg tablet TAKE 1 TABLET BY MOUTH EVERY 6 HOURS NEEDED FOR PAIN active Not Available Not Available No t Available ondansetron 4 mg disintegrati ng tablet LET 1 TABLET DISSOLVE UNDER THE TONGUE THREE TIMES DAILY NEEDED FOR NAUSEA OR VOMITING. active Not Available Not Available No t Available fluticasone propionate 50 mcg/actuatio n nasal spray,suspen renan SHAKE LIQUID AND USE 1 SPRAY IN EACH NOSTRIL DAILY active Not Available Not Available No t Available sertraline 50 mg tablet TAKE 1 AND 1/2 TABLETS BY MOUTH EVERY DAY active Not Available Not Available No t Available dicyclomine 10 mg capsule TAKE 2 CAPSULES BY MOUTH FOUR TIMES DAILY TAKE NEEDED FOR STOMACH SPASMS active Not Available Not Available No t Available amoxicillin 875 mg-potassium clavulanate 125 mg tablet TAKE 1 TABLET BY MOUTH TWICE DAILY FOR 10 DAYS active Not Available Not Available No t Available oxycodone 5 mg tablet TAKE 1 TABLET BY MOUTH EVERY 4 TO 6 HOURS NEEDED active Not Available Not Available No t Available nitrofuranto in monohydrate/ macrocrystal s 100 mg capsule TAKE 1 CAPSULE BY MOUTH TWO TIMES A DAY UNTIL FINISHED active Not Available Not Available No t Available Levemir FlexPen 100 unit/mL (3 mL) solution subcutaneous insulin pen ADMINISTER 15 UNITS UNDER THE SKIN DAILY active Not Available Not Available N ot Available BD Ultra-Fine Short Pen Needle 31 gauge x 5/16 USE DIRECTED WITH INSULIN PEN EVERY DAY active Not Available Not Available No t Available cholecalcife rol (vitamin D3) 25 mcg (1,000 unit) tablet TAKE 1 TABLET BY MOUTH DAILY active Not Available Not Available Not Available guaifenesin ER 1,200 mg tablet, extended release 12 hr Take 1 tablet every 12 hours by oral route as needed for 10 days. 2022 active Not Available Not Available Not Avai lable oxycodone 10 mg tablet TAKE 1 TABLET BY MOUTH EVERY 4 HOURS FOR 7 DAYS NEEDED FOR PAIN active Not Available Not Available No t Available diclofenac 1 % topical gel APPLY 4 GRAMS TOPICALLY TO THE AFFECTED AREA UP TO FOUR TIMES A DAY active Not Available Not Available No t Available melatonin 5 mg tablet TAKE 1 TABLET BY MOUTH EVERY NIGHT AT BEDTIME FOR SLEEP active Not Available Not Available No t Available cholecalcife rol (vitamin D3) 50 mcg (2,000 unit) tablet active Not Available Not Available Not Available Gavilax 17 gram/dose oral powder DISSOLVE 17 GRAMS INTO WATER AND DRINK BY MOUTH EVERY DAY active Not Available Not Available No t Available Senexon-S 8.6 mg-50 mg tablet TAKE 2 TABLETS BY MOUTH TWO TIMES A DAY NEEDED FOR CONSTIPATIO N active Not Available Not Available No t Available sodium,potas sium,mag sulfates 17.5 gram-3.13 gram-1.6 gram oral soln PLEASE SEE ATTACHED FOR DETAILED DIRECTIONS active Not Available Not Available N ot Available buprenorphin e 4 mg-naloxone 1 mg sublingual film DISSOLVE 1 FILM UNDER THE TONGUE EVERY DAY AT BEDTIME active Not Available Not Available N ot Available Trulicity 0.75 mg/0.5 mL subcutaneous pen injector active Not Available Not Available Not Available naloxone 4 mg/actuation nasal spray GENTLY INSERT THE TIP INTO ONE NOSTRIL AND PRESS THE PLUNGER FIRMLY; IF NO RESPONSE MAY REPEAT EVERY 2 TO 3 MINUTES IN ALTERNATE NOSTRIL active Not Available Not Available No t Available OneTouch Ultra2 Meter USE TO MONITOR BLOOD SUGAR TWICE DAILY active Not Available Not Available Not Available OneTouch Delica Plus Lancet 33 gauge active Not Available Not Available Not Available OneTouch Delica Plus Lancet 30 gauge USE 1 TWICE DAILY TO CHECK BLOOD SUGAR active Not Available Not Available No t Available Daily-Bhargavi (with folic acid) 400 mcg tablet TAKE 1 TABLET BY MOUTH EVERY DAY active Not Available Not Available No t Available Flowflex COVID-19 Antigen Home Test kit USE DIRECTED active Not Available Not Available No t Available Vitals Date Recorded Respiratory rate Body height Oxygen saturation Oxygen saturation in Arterial blood by Pulse oximetry Body weight Heart rate Body temperature Systolic And Diastolic Provider Name and Address Organization Details Last Updated DateTime 5 18 /min 175.26 cm 96 % 96 % 72387.3 2 g 80 /min 98.1 [degF] 134/77 mm[Hg] Not Available [facility] 5 11:50:11 Date Recorded Respiratory rate Heart rate Body temperature Oxygen saturation Oxygen saturation in Arterial blood by Pulse oximetry Systolic And Diastolic Provider Name and Address Organization Details Last Updated DateTime 5 16 /min 70 /min 98.3 [degF] 97 % 97 % 164/90 mm[Hg] Not Available [employer] [employer] 5 14:48:26 Date Recorded Respiratory rate Body temperature Body weight Body height Oxygen saturation Oxygen saturation in Arterial blood by Pulse oximetry Heart rate Systolic And Diastolic Provider Name and Address Organization Details Last Updated DateTime 3 14 /min 98.1 [degF] 81400.8 g 157.48 cm 96 % 96 % 63 /min 123/86 mm[Hg] Not Available [employer] - [facility] 3 12:49:32 Social History None recorded. Functional Status None recorded. Mental Status None recorded. Family History Nothing Reported. Medical History No medical history recorded. Past Encounters Encounter ID Performer Location Encounter Start Date Encounter Closed Date Diagnosis/Indication Diagnosis SNOMED-CT Code Diagnosis ICD10 Code Diagnosis IMO Codes Diagnosis Note [id number] Salas Pavon MD [facility] [address] [place] [phone] 01/29/2023 12:49:09 01/29/2023 22:46:38 Chest pain 11353721 R07.9 Increased frequency of urination 604788255 R35.0 Cough 84547453 R05.9 [id number] Keily Bran MD [facility] [address] [place] [id number] 05/08/2024 11:50:06 05/12/2024 16:17:36 Pain in left lower limb [id number] M79.605 large hematoma- anticoagul ated- s/ p fall- patient very concerned re dvt- made aware/ sts/pain likely due to hematoma from fall while anticoagul ated but we cannot r/o dvt at home- Retention of urine 60329 4002 R33.9 Patient declines Jarrett attempt in home despite having experience d medic at home- wants to go to ED. [id number] Ok Guerrero MD [facility] [phone] 12/05/2024 14:48:17 12/06/2024 16:14:33 Conjunctivitis of right eye 8435606608 0193383 H10.9 [id number] Health Concerns Section Related Observation LastModified by Organization Detai ls LastModified Time None Recorded Concern Status LastModified by Organization Details LastModified Time None Recorded Advance Directives Directive None Recorded Payers Insurance Date Sequence Insurance Name Policy Number Policy Capps Covered Member ID Capps Member ID Guarantor Name 12/05/2024 1 [facility] - DOS ON OR AFTER 2022 - DUAL ELIGIBLE - [employer] OPTIONS AND ONE CARE (MEDICARE REPLACEMENT/ADV ANTAGE - HMO) Raffi Spencer [id number] Raffi Spencer Notes Date Note Type Note Provider Name and Address Organization Details Recorded Time 01/29/2023 text/html ROS as noted in the HPI This was a supervised home visit with guest services coordinator Wilman Estrella. HPI: Community RN calling in to place a referral, member identified via /name. Member who was discharged recently from hospital with ongoing chief complaint, with negative cardiac work up, and was recommended to have an outpatient stress test. Member with persistent whole left sided body pain, per nurse is replicable with tenderness to touch, this has been present since hospitalization, denies sob. Member was advised to take NSAIDS, however, can not tolerate due to stomach issues. Member had arecent echo done in [place]. No history of any previous cardiac events, blood pressure is managed well, on clonidine per RN. Member would like an [facility] visit. ................... ................... ................... ................... ................... ................... ................... ........ CRC Nursing Assessment: Comments: CRC RN did not require any additional information to process this visit. ................... ................... ................... ................... ................... ................... ................... ........ Flatwork Supervisor Note From Wilman Estrella: Patient AURELIA times three answers door with a steady gait. Patient complains of left side, chest pain, left side arm pain left leg pain times a week. Patient was seen at hospital and released six days ago with instructions to get a stress test. Patient reports pain increases on cough. Patient reports frequent, productive, cough times four days with nasal congestion, patient reports he has an albuterol inhaler but doesn t feel the need to use it. Patient also complains of increased urinary frequency. Patient denies burning painful urination. Pt denies other pain or other complaints. Patient pink, warm and dry lung sounds clear negative increased work of breathing positive full sentences. Negative edema. Frequent productive cough noted with yellow sputum. Ekg, UA to [facility]. Covid and flu negative via rapid poc. [facility] will rx mucinex and benzonatate to [facility] local pharmacy. Red flags and patient education discussed [facility] Lab Orders: urinalysis, dipstick: Performed Comment: dark clear no odor rapid flu (A+B): Performed Comment: neg rapid SARS CoV 2 Ag, QL IA, respiratory specimen: Performed Comment: neg ................... ................... ................... ................... ................... ................... ................... ........ Disposition: Fulfilled Salas Pavon MD [address] [place] [address],[address], [place], [phone], [employer] 01/29/2023 13:53:00 05/08/2024 text/html ROS as noted in the [facility] CRC Nurse Triage Notes (Evangelina Leal - [place]): Reason For Request: Pt reporting falling down the stairs 2 weeks ago and feeling worse than before Chief Complaints: Falls, Leg pain/swelling, Weakness PMH: Hypertension PMH Reviewed at 05/08/2024:43 Allergies Reviewed at 05/08/2024 - 09:43 Comments: PMH: back surgery, hip surgery, stomach sleeve, knee surgery, DVT's, no kidney disease, aneurysm Takes Eliquis & ASA. Allergies: Ghulam-inhibitors, Metformin Denies SOB, chest pain c/o left leg/thigh pain, bruising, lump to left thigh, burning feeling and some n/t to leg, fell 2 weeks ago and today is worse than before, hardly able to walk/bear weight on it. Member is with his mother for help, Noted he did get imagining today and nothing is broken. member worried he has a DVT's with his history. Advised may not need further imaging but member agreed to a visit. Info verified. Toshia ATKINSON ................... ................... ................... ................... ................... ................... ................... ........ Flatwork Supervisor Note From Qi Solis: Sent to a call for a pt complaining of left hip/leg pain after a fall. [facility] arrives on scene, pt is alert and oriented, airway is patent. Pt allergies verified: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
--- OUTSIDE RECORDS SUMMARY | 2025-01-29 17:11 | XMS_ITS | Clinical Summary ---
Author Organization [facility] Address [address] [place] [address] Phone Care Team Providers Care Lens Coating Technician Name Role Phone Physician, No Pcp Primary Care Provider Unavaila ble Allergies Active Allergy Reactions Criticality Noted Date Comments Ghulam Inhibitors Swelling 03/26/2024 Bee Venom Protein (Honey Bee) Anaphylaxis High 09/01 Metformin Swelling 03/26/2024 Medications acetaminophen (TYLENOL) 500 mg tablet Take 2 tablets (1,000 mg total) by mouth every 8 (eight) hours. 30 tablet 05/04/2024 Active dicyclomine (BENTYL) 10 mg capsule Take 2 capsules (20 mg total) by mouth 2 (two) times a day. 04/13/2024 Active famotidine (PEPCID) 20 mg tablet Take 1 tablet (20 mg total) by mouth 2 (two) times a day. 04/13/2024 Active ergocalciferol (VITAMIN D-2) 1,250 mcg (50,000 unit) capsule Take 1 capsule (50,000 Units total) by mouth 1 (one) time per week. Active gabapentin (NEURONTIN) 800 mg tablet Take 1 tablet (800 mg total) by mouth 3 (three) times a day. 05/18/2024 Active multivitamin tablet Take 1 tablet by mouth 1 (one) time each day. 04/13/2024 Active omeprazole (PriLOSEC) [address] capsule Take 1 capsule (40 mg total) by mouth 1 (one) time each day. 07/24/2024 Active QUEtiapine (SEROquel) 100 mg tablet Take 2 tablets (200 mg total) by mouth at bedtime. 07/01/2023 Active sertraline (ZOLOFT) 25 mg tablet Take 3 tablets (75 mg total) by mouth 1 (one) time each day. Active tamsulosin (FLOMAX) 0.4 mg 24 hr capsule Take 1 capsule (0.4 mg total) by mouth 1 (one) time each day. 04/13/2024 Active traZODone (DESYREL) 150 mg tablet Take 1 tablet (150 mg total) by mouth at bedtime. 04/13/2024 Active verapamiL (CALAN) 120 mg tablet Take 1 tablet (120 mg total) by mouth 1 (one) time each day. Active Active Problems Problem Noted Date Diagnosed Date Urinary tract infection due to ESBL Klebsiella 0 08/10/2024 Sepsis ([facility] V24, [facility] V28) 08/04/2024 PE (pulmonary thromboembolism) ([facility] V24, [facility] V28) 11/07/2020 Eating disorder 10/17/2020 Nephrolithiasis 09/24/2020 Overview (04/22/2024): 09/2020: obstructing on CT at [facility]. Following with [facility], Dr. Hubbard. Per patient lithotripsy pending Low back pain 09/23/2020 Overview (04/22/2024): Last Assessment & Plan: The patient's greatest pain is in the lumbosacral junction region more on the left than the right. This seems to be the major contributor to his pain with referred pain radiating into the buttocks region. He does get some groin pain but this seems to be much less intense than the buttocks and low back region. I will have the patient bear weight as tolerated using a walker. I have recommended that he see a strategy specialist such as physiatry at [facility] or [facility]. I see no evidence of any fracture about the hip joint. The abnormality seen on [facility] x-rays has an appearance more consistent with soft tissue calcification or low- grade heterotopic ossification than fracture. I will have the patient follow-up with me for his next routine postop visit at 1 year postop. He can of course come in anytime sooner than that on a as needed basis for any reason at all. Status post total replacement of left hip 2020 Subclinical hypothyroidism 05/02/2020 Vitamin D deficiency 05/02/2020 Obstructive sleep apnea 02/16/2020 Overview (04/22/2024): [facility] Home Sleep Apnea Test: Date 01/27/2020; Wt 276#; BMI 41; ELVIA (AHI) 22, Obstructive apneas 4; Mixed apneas 0; Central apneas 6; hypopneas 183; average oxygen saturation 90% (lowest 78% with saturations <88% for 5% or more of study) - Obstructive Sleep Apnea - moderate; mostly hypopneas; with sleep related hypoventilation by 2019 home sleep apnea test. Congenital hip deformity 10/31/2018 Overview (04/22/2024): Per patient, treated through the [facility] from age 4 with some type of fixation device left hip Cyst of left kidney 08/19/2017 Overview (04/22/2024): Ultrasound 08/2017 2. 2.3 cm greatest diameter complex cyst with internal septations upper pole left kidney similar in appearance to 12/05/2016 study and mildly increased in size as described with 12 10/25/2014 study. Follow-up renal ultrasound in one year is recommended. IBS (irritable bowel syndrome) 11/10/2014 Type 2 diabetes mellitus ([facility] V24, [facility] V 28) 09/18/2012 Neurogenic bladder 09/18/2012 Overview (04/22/2024): intermittent straight cath Asthma 07/31/2012 Chronic back pain 07/31/2012 Chronic diarrhea 07/31/2012 Generalized anxiety disorder 07/31/2012 Overview (04/22/2024): Sees [facility] Naomi [facility]id at [facility], therapist is Macie Grajeda, last hospitalization [id number] at [facility] for suicidal ideation with cutting himself with a knife Hypertension 07/31/2012 Major depression 07/31/2012 Narcotic dependence (CMS/HCC V24, CMS/[facility] V28) 0 07/31/2012 Immunizations Immunization Administration Dates Next Due COVID-19 (Pfizer/Comirnaty) 12yo and older 03/07/2024 Influenza Quadravalent, MDCK , 0.5ml, preservative free (Flucelvax) 6mo and older 12/20/2022,12/28/2021,12/19/2020,01/14,05/01/2018 Influenza Quadrivalent, 0.5m l, preservative free (Fluarix; FluLaval; Fluzone) ages 6mo and older (Afluria) 3yo and older 12/06/2017,11/08/2016 Influenza trivalent, 0.5mL, preservative free (Fluarix; FluLaval; Fluzone) ages 6mo and older (Afluria) 3 years and older 03/07/2024,11/18/2015,12/09/2014 Influenza trivalent, with pr eservative (Fluzone; Afluria) 6mo and older 01/15/2019,12/05/2013,11/26/2012,01/07,01/10/2010 Influenza, Unspecified 12/13/2021,01/08/2012 Pfizer (ages 12 & older) Biv alent, COVID-19 01/11/2022 Pneumococcal conjugate 20 va lent (Prevnar 20, PCV 20) 2mo and older 03/05/2022,03/05/2022 Pneumococcal polysaccharide 23 valent (Pneumovax 23) 2yo and older 09/07/2014,01/29/2013,07/29/2008 SARS-COV-2 (COVID-19) Vaccin e, Unspecified 01/11/2022 Tdap Tetanus diptheria acell ular pertussis (Boostrix; Adacel) 7yo and older 05/31/2023,08/19/2022,09/09/2015,08/26 Zoster recombinant (Shingrix ) 19yo and older 01/11/2022,05/23/2018,12/06/2017 Surgical History Surgery Date Site/Laterality Comments CHOLECYSTECTOMY PROCEDURE: HISTORICAL CHOLECYSTECTOMY APPENDECTOMY PROCEDURE: HISTORICAL APPENDECTOMY HERNIA REPAIR PROCEDURE: REPAIR INGUINAL HERNIA OTHER SURGICAL HISTORY PROCEDURE: CA ANES HRNA RPR UPR ABD LMBR&VNT HERNIA&/DEHSN BACK SURGERY PROCEDURE: HISTORICAL BACK SURGERY; COMMENT: A-P spinal surgery ESOPHAGOGASTRODUODENOSCOPY 11/26/14 [facility] PROCEDURE: CA EGD TRANSORAL BIOPSY SINGLE/MULTIPLE; COMMENT: normal with nl gastric, duodenal biiopsies; nl esophagus. COLONOSCOPY W/ BIOPSIES 11/26/2014 PROCEDURE: CA COLONOSCOPY W/BIOPSY SINGLE/MULTIPLE; COMMENT: tics; normal colonic biopsies; repeat in 10 yrs under propofol HIP ARTHROPLASTY 03/24/2019 Bilateral PROCEDURE: HISTORICAL HIP REPLACEMENT; COMMENT: Total hip replacement, Dr Zee OTHER SURGICAL HISTORY PROCEDURE: CA ARTHRP ACETBLR/PROX FEM PROSTC AGRFT/ALGRFT CHOLECYSTECTOMY PROCEDURE: CA CHOLECYSTECTOMY COLONOSCOPY 01/05/2021 PROCEDURE: HISTORICAL COLONOSCOPY; COMMENT: diverticulosis. biopsy pending to assess for microscopic colitis ESOPHAGOGASTRODUODENOSCOPY 01/05/2021 PROCEDURE: CA EGD TRANSORAL BIOPSY SINGLE/MULTIPLE; COMMENT: esophagitis. gastric sleeve. biopsy pending OTHER SURGICAL HISTORY 06/07/2020 Left PROCEDURE: CA ARTHROSCOPY KNEE SYNOVECTOMY LIMITED SPX; COMMENT: Partial Synovectomy of Impinging Synovial [place], Dr Zee BARIATRIC SURGERY KIDNEY STONE SURGERY LITHOTRIPSY CYSTOSCOPY Medical History Medical History Date Comments Chronic back pain 07/31/2012 DX:Chronic yosi k pain Chronic diarrhea 07/31/2012 DX:Chronic diar terry Morbid obesity ([facility] V24, CMS/[facility] V28) 07/31/2012 DX:Morbid obesity (HCC) Generalized anxiety disorder 07/31/2012 DX: Generalized anxiety disorder Major depression 07/31/2012 DX:Major depres renan Asthma 07/31/2012 DX:Asthma Hypertension 07/31/2012 DX:Hypertension Controlled type 2 diabetes m ellitus with complication, with long-term current use of insulin (CMS/[facility] V24, CMS/[facility] V28) 02/05/2018 DX:Controlled type 2 diabete s mellitus with complication, with long-term current use of insulin ([facility]) Congenital hip deformity 10/31/2018 DX:Bhargav enital hip deformity; COMMENT: Per patient, treated through the [facility] from age 4 with some type of fixation device left hip Subclinical hypothyroidism 05/02/2020 DX:Welch bclinical hypothyroidism Vitamin D deficiency 05/02/2020 DX:Vitamin D deficiency Eating disorder 10/17/2020 DX:Eating disord er DM (diabetes mellitus), type 2, uncontrolled, with renal complications 09/18/2012 DX:DM (diabetes mellitus), t ype 2, uncontrolled, with renal complications Class 3 severe obesity due t o excess calories with serious comorbidity and body mass index (BMI) of 40.0 to 44.9 in adult ([facility] V24, [facility] V28) 12/24/2019 DX:Class 3 severe obesity due to excess calories with serious comorbidity and body mass index (BMI) of 40.0 to 44.9 in adult ([facility]) IBS (irritable bowel syndrome) 11/10/2014 D X:IBS (irritable bowel syndrome) Narcotic dependence ([facility] V24, [facility] V28) 07/31/2012 DX:Narcotic dependence ([facility]) Nephrolithiasis 09/24/2020 DX:Nephrolithias is; COMMENT: 09/2020: obstructing on CT at [facility]. Following with [facility], Dr. Hubbard. Per patient lithotripsy pending Neurogenic bladder 09/18/2012 DX:Neurogenic bladder; COMMENT: intermittent straight cath Obstructive sleep apnea 02/16/2020 DX:Obstr uctive sleep apnea; COMMENT: [facility] Home Sleep Apnea Test: Date 01/27/2020; Wt 276#; BMI 41; ELVIA (AHI) 22, Obstructive apneas 4; Mixed apneas 0; Central apneas 6; hypopneas 183; average oxygen saturation 90% (lowest 78% with saturations <88% for 5% or more of study) - Obstructive Sleep Apnea - moderate; mostly hypopneas; with sleep related hypoventilation by 2019 home sleep apnea test. Status post total replacemen t of left hip 09/23/2020 DX:Status post total replace ment of left hip Ascending aorta dilatation ( [facility] V24) 2024 4.4cm Family History Medical History Relation Name Comments Diabetes Brother 1 Other: unknown Brother 1 Lung cancer Father Hypertension Mother CAD Cancer Sister 1 Other: congenital problem Sister 1 Other: unknown Sister 2 Relation Name Status Comments Brother 1 Brother 2 Alive Father Mother Alive Sister 1 Sister 2 Sister 3 Alive X2 Sister 4 had congential defect Social History Tobacco Use Types Packs/Day Years Used Date Smoking Tobacco: Never Smokeless Tobacco: Never Alcohol Use Standard Drinks/Week Comments No 0 (1 standard drink = 0.6 oz pur e alcohol) Food Risk Answer Date Recorded Within the past 12 months we worried whether our food would run out before we got money to buy more. Never true 08/10/2024 Within the past 12 months th e food we bought just didn't last and we didn't have money to get more. Never true 08/10/2024 Sex and Gender Information Value Date Recorded Sex Assigned at Not on file Legal Sex Male 10:36 AM EST Gender Identity Not on file Sexual Orientation Not on file Obstetrics History Last Filed Vital Signs Vital Sign Reading Time Taken Comments Blood Pressure 145/99 08/13/2024 4:15 AM EDT Pulse 77 08/13/2024 4:15 AM EDT Temperature 37 C (98.6 F) 08/13/2024 4:15 AM EDT Respiratory Rate 17 08/13/2024 4:15 AM EDT Oxygen Saturation 96% 08/13/2024 4:15 AM EDT Inhaled Oxygen Concentration - - Weight 95.3 kg (210 lb) 09/01/2024 10:00 AM EDT Height 172.7 cm (5' 8 ) 09/01/2024 10:00 AM EDT Body Mass Index 31.93 09/01/2024 10:00 AM EDT Plan of Treatment Upcoming Encounters Date Type Department Care Team (Late st Contact Info) Description 06/25/2025 11:00 AM EDT Ancillary Procedure [facility] [address] [facility] [address] [place] [address] 07/01/2025 11:00 AM EDT Office Visit Vascular Surgery - [place] [address] [facility] [address] [place] [address] Wisam Samuel MD [address] [facility] [address] [place] [address] Health Maintenance Due Date Last Done Comments Diabetes: Annual Foot Exam 1974 Diabetes: Annual Retina Eye Exam 1974 HIV Screening 03/17/2022 Medicare Annual Wellness Visit 03/17/2022 Diabetes: Blood Sugar Control Test (HGBA1C) 10/31/2022 05/03/2022 Diabetes: Annual Urine Albumin-Creatinine Ratio (uACR) 05/03/2023 05/03/2022 Depression Screening 04/08/2024 Social Influencers of Health Screening 08/10/2025 08/10/2024 Diabetes: Annual GFR (Glomerular Filtration Rate) 08/12/2025 08/12/2024, 08/05/2024, 08/04/2024, Additional history exists Hypertension/CHF/CAD Annual BMP Blood Test 08/12/2025 08/12/2024, 08/05/2024, 08/04/2024, Additional history exists Cholesterol Screening (Lipid Panel) 05/03/2027 05/03/2022 Colorectal Cancer Screening: Colonoscopy 01/05/2031 01/05/2021 DTaP,Tdap,and Td Vaccines (5 - Td or Tdap) 05/31/2033 05/31/2023, 08/19/2022, 09/09/2015, Additional history exists Hepatitis C Screening Completed 04/09/2010 Zoster Vaccines Completed 01/11/2022, 05/09, 12/06/2017 Pneumococcal Vaccine: 50+ Years Completed 03/05/2022, 03/05/2022, 09/07/2014, Additional history exists COVID-19 Vaccine Completed 03/07/2024, 02/2023, 01/11/2022, Additional history exists Influenza Vaccine Completed 12/05/2024, , 12/20/2022, Additional history exists RSV Immunization Adult Patients Completed 12/05/2024 HIB Vaccines Aged Out No longer eligi ble based on patient's age to complete this topic HPV Vaccines Aged Out No longer eligi ble based on patient's age to complete this topic Hepatitis A Vaccines Aged Out No long er eligible based on patient's age to complete this topic Hepatitis B Vaccines Aged Out No long er eligible based on patient's age to complete this topic IPV Vaccines Aged Out No longer eligi ble based on patient's age to complete this topic MMR Vaccines Aged Out No longer eligi ble based on patient's age to complete this topic Meningococcal ACWY Vaccine Aged Out N o longer eligible based on patient's age to complete this topic Meningococcal B Vaccine Aged Out No l onger eligible based on patient's age to complete this topic RSV Immunization Patients Under 20 months Aged Out No longer eligible based on patient's age to complete this topic Varicella Vaccines Aged Out No longer eligible based on patient's age to complete this topic Procedures Procedure Name Priority Date/Time Associated Diagnosis Comments COMPREHENSIVE METABOLIC PANEL STAT 08/12/2024 6:53 PM EDT HM URINE ALBUMIN CREATININE RATIO Routine 05/03/2022 HEMOGLOBIN A1C Routine 05/03/2022 LIPID PANEL Routine 05/03/2022 HM COLONOSCOPY Routine 01/05/2021 HEPATITIS C SCREENING Routine 04/09/2010 from Last 3 Months or Most Recently Relevant to Health Maintenance Results * (ABNORMAL) Comprehensive metabolic panel (08/12/2024 6:53 PM EDT) Sodium 138 133 - 145 mmol/L LAB CHEMISTRY METHOD 08/12/2024 7:49 PM [facility] Potassium 4.0 3.5 - 5.5 mmol/L LAB CHEMISTRY METHOD 08/12/2024 7:49 PM [facility] Chloride 105 96 - 110 mmol/L LAB CHEMISTRY METHOD 08/12/2024 7:49 PM [facility] CO2 26 21 - 32 mmol/L LAB CHEMISTRY METHOD 08/12/2024 7:49 PM [facility] Anion Gap 7 3 - 11 LAB CHEMISTRY METHOD 08/12/2024 7:49 PM [facility] Glucose 87 70 - 100 mg/dL LAB CHEMISTRY METHOD 08/12/2024 7:49 PM [facility] BUN 13 5 - 25 mg/dL LAB CHEMISTRY METHOD 08/12/2024 7:49 PM [facility] Creatinine 0.74 0.70 - 1.30 mg/dL LAB CHEMISTRY METHOD 08/12/2024 7:49 PM [facility] eGFR 104 >=60 mL/min/1. 73m2 LAB CHEMISTRY METHOD 08/12/2024 7:[address] [facility] Comment:Calculation based on the Chronic Kidney Disease Epidemiology Collaboration (CKD-EPI) equation refit without adjustment for race. BUN/Creatinine Ratio 17.6 LAB CHEMISTRY METHOD 08/12/2024 7:49 PM [facility] Calcium 9.7 8.5 - 10.5 mg/dL LAB CHEMISTRY METHOD 08/12/2024 7:49 PM [facility] AST (SGOT) 20 10 - 42 unit/L LAB CHEMISTRY METHOD 08/12/2024 7:49 PM [facility] ALT (SGPT) 29 10 - 60 unit/L LAB CHEMISTRY METHOD 08/12/2024 7:49 PM [facility] Alkaline Phosphatase 123(H) 42 - 121 unit/L LAB CHEMISTRY METHOD 08/12/2024 7:49 PM [facility] Total Protein 7.4 6.0 - 8.0 g/dL LAB CHEMISTRY METHOD 08/12/2024 7:49 PM [facility] Albumin 4.1 3.2 - 5.0 g/dL LAB CHEMISTRY METHOD 08/12/2024 7:49 PM [facility] Total Bilirubin 0.6 0.0 - 1.4 mg/dL LAB CHEMISTRY METHOD 08/12/2024 7:49 PM [facility] Blood Venous blood specimen / Unknown Venipuncture / Unknown 08/12/2024 6:53 PM EDT 08/12/2024 7:02 PM EDT us Kerrie Mccullough MD LAB BLOOD ORDERABLES Fin al Result [facility] [address] [place] [address], * HM Urine Albumin Creatinine Ratio (05/03/2022) Pathologist [facility] Urine Albumin Creatinine Ratio abstracted [facility] Provider HEALTH MAINTENANCE Final Result * Hemoglobin A1c (05/03/2022) [facility] Hemoglobin A1C 5.8 <=6.5 % Blood Venous blood specimen / Unknown Result [facility] Provider LAB BLOOD ORDERABLES Nova l Result * (ABNORMAL) Lipid panel (05/03/2022) [facility] LDL/HDL Ratio 4 0 - 4 Triglycerides 431(A) 0 - 150 mg/dL Cholesterol 201(A) 0 - 200 mg/dL HDL 49 >=40 mg/dL LDL Cholesterol 66 0 - 100 mg/dL Blood Venous blood specimen / Unknown Result [facility] Provider LAB BLOOD ORDERABLES Nova l Result * Colonoscopy (01/05/2021) [facility] Colonoscopy no interpretation , abstracted Anatomical Region Laterality Modality Other Result [facility] Provider HEALTH MAINTENANCE Final Result * Hepatitis C Screening (04/09/2010) [facility] Hepatitis C Screening abstracted [facility] Provider HEALTH MAINTENANCE Final Result from Last 3 Months or Most Recently Relevant to Health Maintenance Additional Health Concerns Infection Onset Date Last Indicated ESBL 08/04/2024 08/04/2024 Insurance [facility] MEDIC[facility] Member Subscriber Plan / Payer (Ef fective 2020-Present) Name:HEENA SPENCER Relation to Subscriber:Self Name:Heena Spencer Jr Payer ID:[id number] Group ID:[id number] Type:Not on file Address: [facility] [address] [phone] Advance Directives * Full Code - Default (Latest Code Status on File) Date Activated Date Inactivated Comments 08/04/2024 4:11 AM 08/11/2024 1:07 PM This is order is used when code status has not been discussed with the patient, or code status is otherwise unknown/unconfirmed To update the patient's code status, place a code status order. Do not modify or discontinue any currently active code status orders. Care Teams Lens Coating Technician Relationship Specialty Start Date End Date Physician, No Pcp PCP - General 04/16/24
--- OUTSIDE RECORDS SUMMARY | 2025-01-29 17:11 | XMS_ITS | Encounter Summary ---
Author Organization [facility] Address [address] [place] [address] Care Team Providers Care Retail Associate Manager Bilingual Name Role Phone Physician, No Pcp Primary Care Provider Unavaila ble Encounter Details Date Type Department Care Team (Late st Contact Info) Description 08/27/2024 Lab Requisition [facility] - Main Lab [address] [facility] [place] [address] Daniel Rodriguez MD [address] [phone] Calculus of ureter Social History Tobacco Use Types Packs/Day Years [...] on file Sexual Orientation Not on file documented as of this encounter Functional Status * Are you deaf or do you have serious difficulty hearing? Answer Date of Assessment Author No 04/20/2024 4:04 AM EST Екатерина Saez RN * Are you blind or do you have serious difficulty seeing, even when wearing glasses? Answer Date of Assessment Author No 04/20/2024 4:04 AM EST Saez, Екатерина Connelly RN * Do you have serious difficulty walking or climbing stairs? Answer Date of Assessment Author Yes 04/20/2024 4:04 AM Екатерина Good RN * Do you have serious difficulty dressing or bathing? Answer Date of Assessment Author No 04/20/2024 4:04 AM JAMILAH Saez, Екатерина Connelly RN * Because of a physical, mental, or emotional condition, do you have serious difficulty doing errandsalone such as visiting the doctor? Answer Date of Assessment Author Yes 04/20/2024 4:04 AM Екатерина Good RN documented as of this encounter Mental Status * Because of a physical, mental, or emotional condition, do you have serious difficulty concentrating, remembering, or making decisions? (5 years old or older) Answer Entry Date Author Yes 04/20/2024 4:04 AM Екатерина Good RN documented in this encounter Plan of Treatment Upcoming Encounters Date Type Department Care Team (Late st Contact Info) Description 06/25/2025 11:00 AM EDT Ancillary Procedure [facility] [address] [facility] [address] [place] [address] 07/01/2025 11:00 AM EDT Office Visit Vascular Surgery - [place] [address] [place] [phone] Wisam Samuel MD 1000 [facility] [address] [place] [address] documented as of this encounter Procedures Procedure Name Priority Date/Time Associated Diagnosis Comments PROTHROMBIN TIME WITH INR Routine 08/27/2024 1:55 PM EDT Calculus of ureter COMPLETE BLOOD COUNT Routine 08/27/2024 1:55 PM EDT Calculus of ureter documented in this encounter Results * Prothrombin time with INR (08/27/2024 1:55 PM EDT) Protime 11.9 10.6 - 13.9 sec LAB COAGULATION METHOD 08/27/2024 6:34 PM EDT [facility] INR 0.9 LAB COAGULATION METHOD 08/27/2024 6:34 PM EDT [facility] Blood Venous blood specimen / Unknown 08/27/2024 1:55 PM EDT 08/27/2024 6:14 PM EDT Daniel Rodriguez MD LAB BLOOD ORDERABLES Nova l Result [facility] [address] [place] [address], * (ABNORMAL) Complete blood count (08/27/2024 1:55 PM EDT) WBC 8.0 4.8 - 10.8 K/mcL LAB HEMETOLOGY METHOD 08/27/2024 6:50 PM EDT [facility] RBC 4.50 4.50 - 5.50 M/mcL LAB HEMETOLOGY METHOD 08/27/2024 6:50 PM EDT [facility] Hemoglobin 14.3 13.5 - 17.5 g/dL LAB HEMETOLOGY METHOD 08/27/2024 6:50 PM EDT [facility] Hematocrit 41.2(L) 42.0 - 54.0 % LAB HEMETOLOGY METHOD 08/27/2024 6:50 PM EDT [facility] MCV 91.8 79.0 - 98.0 FL LAB HEMETOLOGY METHOD 08/27/2024 6:50 PM EDT [facility] MCH 31.8 27.0 - 32.0 pcg LAB HEMETOLOGY METHOD 08/27/2024 6:50 PM EDT [facility] MCHC 34.7 32.0 - 37.0 g/dL LAB HEMETOLOGY METHOD 08/27/2024 6:50 PM EDT [facility] RDW 12.6 11.0 - 15.0 % LAB HEMETOLOGY METHOD 08/27/2024 6:50 PM EDT [facility] Platelets 245 130 - 400 K/mcL LAB HEMETOLOGY METHOD 08/27/2024 6:50 PM EDT [facility] MPV 8.9 7.0 - 11.0 FL LAB HEMETOLOGY METHOD 08/27/2024 6:50 PM EDT [facility] NRBC 0.0 <1.0 % LAB HEMETOLOGY METHOD 08/27/2024 6:50 PM EDT [facility] LAB NRBC Absolute 0.00 <0.10 K/mcL [facility] METHOD 08/27/2024 6:50 PM EDT [facility] Blood Venous blood specimen / Unknown 08/27/2024 1:55 PM EDT 08/27/2024 6:14 PM EDT us Daniel Rodriguez MD LAB BLOOD ORDERABLES Nova l Result [facility] [address] [place] [address], documented in this encounter Visit Diagnoses Diagnosis Calculus of ureter documented in this encounter Additional Health Concerns Infection Onset Date Last Indicated Resolved Time ESBL 08/04/2024 08/04/2024 documented as of this encounter Care Teams Retail Associate Manager Bilingual Relationship Specialty Start Date End Date Physician, No Pcp PCP - General 04/16/24 documented as of this encounter
--- OUTSIDE RECORDS SUMMARY | 2025-01-29 17:11 | XMS_ITS | Data Portability ---
Author Organization [facility] Address [address] [place] [address] Assessment Encounter Date Assessment Date Assessment LastModified by Organization Details LastModified Time 06/24/2023 06/24/2023 PRIMARY DIAGNOSIS: Osteoarthritis of the right hip. REASON FOR ADMISSION: The patient is being admitted for right total hip arthroplasty with Dr. Goldman on 06/28/2023. HISTORY OF PRESENT ILLNESS: The patient is a 58-year-old gentleman, presenting today with right sided hip pain. He has had this pain for several years and has been getting progressively worse. His pain level is 8/10 in intensity at rest, increasing to 10/10 in intensity with weightbearing activities. He reports significant activity limitations, which include difficulty walking any prolonged distances, pivoting and stairs. She has difficulty getting in and out of the car and chair and transitioning from sit to stand. He ambulates with a rolling walker. He had a previous left total hip arthroplasty done with Dr. Zee in about 3 or 4 years ago, which is doing very well. He sustained an injury to the right hip, which exacerbated his hip pain. He is unable to tolerate NSAIDs due to recent gastric sleeve surgery. He does take Tylenol with diminishing returns. He had an intraarticular injection, which was not helpful. The patient states that he is now ready for right total hip arthroplasty with Dr. Goldman on 06/28/2023. PAST MEDICAL HISTORY: 1. Osteoarthritis of the right hip. 2. Diabetes type 2, with preoperative A1c 5.8. 3. Hypertension. 4. History of chest pain with negative workup in 01/2023. 5. Anxiety. 6. Depression. 7. PTSD. 8. Obstructive sleep apnea, on CPAP. 9. Costochondritis. 10. Insomnia. 11. BPH. 12. Obesity with BMI of 33.9. 13. 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 14. COVID-19 infection in 04/2023. 15. Recent admission for cellulitis of the nose in 06/04/2023, where the patient was discharged on Levaquin, doxycycline, and Valtrex. 16. 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 17. Chronic headaches. 18. Hyperlipidemia. 19. Inflammatory neuropathy. 20. History of nephrolithiasis. 21. Chronic back pain with recent implantation of spinal cord stimulator with thoracic laminotomy. PAST SURGICAL HISTORY: 1. Spinal cord stimulator placement on 03/19/2023. 2. Left total hip arthroplasty with Dr. Zee 3-4 years ago at [facility]. 3. Cholecystectomy. 4. Appendectomy. 5. Right foot surgery, where he has a lui in his toe. 6. Kidney stone removal. 7. Gastric sleeve surgery. 8. Left knee surgery. 9. Exploratory lap for left groin extraosseous bone metaplasia. 10. Lumbar spine surgery. CURRENT MEDICATION LIST: 1. Clonidine 0.3 mg p.o. b.i.d. 2. Fluticasone 50 mcg per inhalation nasal spray twice a day. 3. Gabapentin 600 mg t.i.d. 4. Hydroxyzine 25 mg 2-3 times a day as needed, which patient takes twice a day regularly. 5. Melatonin 5 mg daily at bedtime as needed. 6. Omeprazole 40 mg daily at bedtime. 7. Quetiapine 200 mg daily at bedtime. 8. Sertraline 75 mg daily at bedtime. 9. Flomax 0.4 mg daily at bedtime. 10. Trazodone 400 mg daily at bedtime. 11. Multivitamin, which he had stopped in preparation for the surgery. ALLERGIES: The patient is allergic to NGHIA INHIBITORS and METFORMIN. SOCIAL HISTORY: The patient is on disability. 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 He denies any use of tobacco products, alcohol use or illicit drug use. PHYSICIANS: His primary care provider is Dr. Bhakta. REVIEW OF SYSTEMS: Negative with exception of HPI. PHYSICAL EXAMINATION: VITAL SIGNS: Height 5 feet 8 inches tall, weight 220 pounds. Temperature 97.2, blood pressure 128/81, pulse 75. GENERAL: The patient is alert and oriented. Normal insight, affect, and grooming. HEENT: Normocephalic. Conjunctivae pink. Sclerae are anicteric. SKIN: Intact without rash or lesions. Nails without clubbing or cyanosis. NECK: Supple. Trachea midline. No lymphadenopathy. CHEST: Lungs are clear to auscultation bilaterally. Breathing is unlabored. CARDIOVASCULAR: Heart has a regular rate and rhythm with normal S1, S2. No murmurs, rubs or gallops appreciated. No JVD. Carotid pulses without bruits. ABDOMEN: Soft, nontender with normal bowel sounds. No hepatosplenomegaly or masses noted. No bruits appreciated. EXTREMITIES: The patient has negative straight leg raise test bilaterally. Bilateral knees with full range of motion with no pain, no crepitus. Left hip has well-healed incision, full range of motion, no pain. Right hip has very limited and painful range of motion with pain referred to the groin. Motor sensation screening is intact. Calves supple and nontender. Ankle motion is satisfactory. Pedal pulse palpable bilaterally. Skin on his feet is intact. PREOPERATIVE DIAGNOSTIC DATA: EKG reads sinus bradycardia with first-degree AV block at 58 beats per minute. Orthopedic x-rays demonstrate end-stage osteoarthritis of the right hip. There is oyzm-zz-yrzs articulation, subchondral sclerosis and osteophyte formation. There is no significant dysplasia. There is a well-positioned and well fixed arthroplasty noted on the contralateral side. LABORATORY DATA: CBC, coagulation studies and electrolytes within normal limits. A1c 5.8. ASSESSMENT AND PLAN: The patient has advanced osteoarthritis of the right hip and is now scheduled for right total hip arthroplasty with Dr. Goldman on 06/28/2023. The patient was seen by the medical consultative preoperative clinic, who stated that the patient is at low risk for perioperative cardiovascular and pulmonary complications. The patient will receive intra-articular tranexamic acid. He will be on Eliquis 2.5 mg p.o. b.i.d. x30 days postoperatively for DVT prophylaxis. We will monitor his end-tidal CO2 and O2 levels and utilize CPAP postoperatively if needed. We will monitor his point of cares and sliding scale insulin. The patient will not receive any Celebrex due to his inability to tolerate NSAIDs with gastric sleeve surgery. The patient does not wish to receive spinal anesthesia and was encouraged to speak to anesthesia provider regarding his anesthesia options. Discharge plans will be to rehabilitation. The patient is not a candidate for same day discharge. The patient has been counseled regarding the risks and benefits of proposed surgery. His questions have been answered and he acknowledges understanding. The patient wished to proceed with surgery and signed consents. No prescriptions were given to her at this office visit. The patient will require prescriptions for Eliquis and pain medications filled at [facility] prior to discharge. Again, he is requesting to be discharged to rehab preferably [facility]. CONTACTS: Anthony with a cell phone number [phone]. [email or web address] Not available 06/24/2023 13:24:49 Plan of Treatment Reminders Order Date Submit Date Provider Last Modified By Organization Details Last Modified Time Details Appointments None record ed. Lab None record ed. Referral None record ed. Procedures None record ed. Surgeries None record ed. Imaging XR, hip, unilat eral, 2 or 3 view - Room 206, 1st Post [facility] 024 07/12/19 24 [email or web address] [facility] Office, [address], [place], [address], 4 09:36:29 Medication Orders None record ed. Patient TargetsNo targets recorded. Patient InstructionsNo instructions recorded. Reason for Referral None Reported. Results Created Date Observation Date Name Description Value Unit Range Abnormal Flag Note LastModifiedBy Organization Detail LastModifiedTime 06/28/19 24 06/28/2023 XR, pelvi s No observ ation record ed. [facility] [address] [place] [address], [id number], 07/03/2023 18:16:55 06/28/19 24 06/28/2023 XR, pelvi s No observ ation record ed. [facility] [address] [place] [address], [id number], 07/03/2023 11:33:41 06/28/19 24 06/28/2023 verai chio/erwin marie resul t No observ ation record ed. [email or web address] [facility] [address] [facility] [facility], [place], [address], 07/10/2023 15:08:08 12/06/19 24 06/03/2021 imagi ng/di agnos tic resul t No observ ation record ed. [email or web address] Available 11/08 23:33:56 12/06/19 24 06/03/2021 imagi ng/di agnos tic resul t No observ ation record ed. [email or web address] Available 11/08 23:34:17 12/06/19 24 10/06/2022 imagi ng/di agnos tic resul t No observ ation record ed. [email or web address] Not Available 11/08 23:34:20 Result Notes None recorded. Problems Name Problem SNOMED Code Status Onset Date Resolution Date Notes Provider Name and Address Organization Details Recorded Time Osteoarthri tis of right hip joint 8419827838457 07 Active 2023 egypt kelvin wolfe [facility] 11:23:58 Osteoarthri tis of hip 348006537 Active 2023 Vince Jeffries PA-C [address] [facility], [place], [address], [facility] 4 18:54:37 Problem Notes None recorded. Procedures Surgical History Date Name Laterality Status Provider Name and Address Organization Details Recorded Time 4 43369 Therapeutic Exercise (1:1) cancelled Den Palma, PT [address], [place], [address], [facility] 06/18/2023 10:26:38 4 [address]: Low complexity PT Eval cancelled Den Palma, PT [address], [place], [address], [facility] 06/18/2023 10:26:44 Imaging Results None recorded. Procedure Notes None recorded. Medical Equipment None Reported. Allergies Allergen ID Allergen Name Allergen Category Reaction Reaction Severity Criticality Documentation Date Start Date Code Code System Note Provider Name and Address Organization Details Recorded Time 258742 metformin hydrochlo ride medicatio n Not available Not available Not available 06/10/20232022 64739 3 RxNorm Not Available [facility] 4 15:27:07 Medications Name Sig Start Date Stop Date Status Note LastModified by Organization Details LastModified Time cyclobenzap rine 10 mg tablet TAKE 1 TABLET BY MOUTH THREE TIMES A DAY FOR PAIN OR SPASM active Not Available Not Available No t Available neomycin-po lymyxin-hyd rocort 3.5 mg/mL-10,00 0 unit/mL-1 % ear solution INSTILL 2 DROPS TO AFFECTED EAR THREE TIMES DAILY FOR 10 DAYS active Not Available Not Available No t Available gabapentin 600 mg tablet TAKE 1 TABLET BY MOUTH THREE TIMES DAILY active Not Available Not Available No t Available clindamycin HCl 300 mg capsule active Not Available Not Available Not Available cefpodoxime 100 mg tablet TAKE 1 TABLET BY MOUTH EVERY 12 HOURS FOR 3 DAYS active Not Available Not Available No t Available valacyclovi r 1 gram tablet active Not Available Not Available Not Available hydrocodone 5 mg-acetamin ophen 325 mg tablet active Not Available Not Available No t Available sucralfate 1 gram tablet active Not Available Not Available Not Available prednisone 20 mg tablet active Not Available Not Available Not Available clonidine HCl 0.3 mg tablet TAKE 1 TABLET BY MOUTH TWICE DAILY active Not Available Not Available No t Available sumatriptan 50 mg tablet active Not Available Not Available Not Available prochlorper azine maleate 10 mg tablet active Not Available Not Available No t Available omeprazole 40 mg capsule,del ayed release active Not Available Not Available Not Available aspirin 81 mg tablet,zoe yed release active Not Available Not Available Not Available tramadol 50 mg tablet active Not Available Not Available No t Available quetiapine 100 mg tablet TAKE 1 TO 2 TABLETS BY MOUTH EVERY NIGHT AT BEDTIME active Not Available Not Available No t Available oxycodone 15 mg tablet TAKE 1 TABLET BY MOUTH EVERY 6 HOURS NEEDED FOR PAIN FOR 3 DAYS active Not Available Not Available No t Available verapamil 120 mg tablet active Not Available Not Available Not Available famotidine 20 mg tablet TAKE 1 TABLET BY MOUTH TWICE DAILY active Not Available Not Available No t Available lorazepam 0.5 mg tablet TAKE 1 TABLET BY MOUTH DAILY NEEDED FOR ANXIETY. MAY TAKE AN ADDITIONA L TABLET FOR 1 DAILY NEEDED SEVERE ANXIETY. QTY 45 FOR 30 DAYS SUPPLY active Not Available Not Available No t Available tamsulosin 0.4 mg capsule TAKE 1 CAPSULE BY MOUTH DAILY AT BEDTIME active Not Available Not Available No t Available trazodone 100 mg tablet active Not Available Not Available Not Available OneTouch Ultra Test strips USE TO CHECK SUGAR EVERY DAY active Not Available Not Available No t Available trazodone 150 mg tablet TAKE 1 TO 2 TABLETS BY MOUTH EVERY NIGHT AT BEDTIME active Not Available Not Available No t Available lidocaine 5 % topical patch active Not Available Not Available Not Available sertraline 25 mg tablet TAKE 1 TABLET BY MOUTH EVERY DAY ALONG WITH 50MG TABLET FOR TOTAL DAILY DOSE OF 75MG active Not Available Not Available No t Available omeprazole 20 mg capsule,del ayed release active Not Available Not Available Not Available hydroxyzine HCl 25 mg tablet TAKE 1 TABLET BY MOUTH THREE TIMES DAILY NEEDED active Not Available Not Available No t Available mupirocin 2 % topical ointment active Not Available Not Available Not Available gabapentin 100 mg capsule TAKE 1 CAPSULE BY MOUTH 3 TIMES A DAY active Not Available Not Available No t Available ergocalcife rol (vitamin D2) 1,250 mcg (50,000 unit) capsule TAKE 1 CAPSULE BY MOUTH 1 TIME A WEEK active Not Available Not Available No t Available ibuprofen 600 mg tablet active Not Available Not Available Not Available levofloxaci n 500 mg tablet active Not Available Not Available Not Available hydromorpho ne 4 mg tablet TAKE 1/2 TO 1 TABLET BY MOUTH EVERY 4 HOURS NEEDED FOR MODERATE TO SEVERE PAIN active Not Available Not Available No t Available morphine 15 mg immediate release tablet TAKE 1 TABLET BY MOUTH EVERY 6 HOURS NEEDED FOR PAIN active Not Available Not Available No t Available ondansetron 4 mg disintegrat ing tablet DISSOLVE 1 TABLET ON THE TONGUE THREE TIMES A DAY NEEDED FOR NAUSEA AND VOMITING active Not Available Not Available No t Available fluticasone propionate 50 mcg/actuati on nasal spray,suspe nsion active Not Available Not Available Not Available sertraline 50 mg tablet active Not Available Not Available Not Available doxycycline hyclate 100 mg tablet active Not Available Not Available No t Available amoxicillin 875 mg-potassiu m clavulanate 125 mg tablet TAKE 1 TABLET BY MOUTH TWICE DAILY FOR 10 DAYS active Not Available Not Available No t Available oxycodone 5 mg tablet TAKE 1 TABLET BY MOUTH EVERY 4 TO 6 HOURS NEEDED FOR PAIN active Not Available Not Available No t Available melatonin Melatonin 5MG Tablet 03/11 completed Statu s: 'Disc ontin ued'; Not Available Not Available Not Available Seroquel SEROquel 300MG Tablet 05/24 completed Statu s: 'Disc ontin ued'; Not Available Not Available Not Available Levemir FlexPen 100 unit/mL (3 mL) solution subcutaneou s insulin pen ADMINISTE R 15 UNITS UNDER THE SKIN DAILY active Not Available Not Available No t Available BD Ultra-Fine Short Pen Needle 31 gauge x 08/21 active Not Available Not Available Not Available melatonin 5 mg tablet active Not Available Not Available No t Available cholecalcif sarai (vitamin D3) 50 mcg (2,000 unit) tablet active Not Available Not Available Not Available Senexon-S 8.6 mg-50 mg tablet TAKE 2 TABLETS BY MOUTH TWO TIMES A DAY NEEDED FOR CONSTIPAT ION active Not Available Not Available No t Available Eliquis 5 mg tablet active Not Available Not Available No t Available Eliquis 2.5 mg tablet TAKE 1 TABLET BY MOUTH TWO TIMES A DAY active Not Available Not Available No t Available clonidine HCl cloNIDine HCl 0.3MG Tablet 03/11 completed Statu s: 'Disc ontin ued'; Not Available Not Available Not Available Trulicity 0.75 mg/0.5 mL subcutaneou s pen injector active Not Available Not Available Not Available OneTouch Verio Flex Meter USE DIRECTED TO CHECK SUGAR EVERY DAY active Not Available Not Available No t Available OneTouch Delica Plus Lancet 33 gauge USE TO CHECK BLOOD SUGAR UP TO 4 TIMES A DAY active Not Available Not Available No t Available OneTouch Delica Plus Lancet 30 gauge active Not Available Not Available Not Available Daily-Bhargavi (with folic acid) 400 mcg tablet TAKE 1 TABLET BY MOUTH EVERY DAY active Not Available Not Available No t Available Vitals Date Recorded Body height Heart rate Body temperature Body mass index (BMI) Body weight Systolic And Diastolic Provider Name and Address Organization Details Last Updated DateTime 4 175.26 cm 75 /min 97.2 [degF] 32.5 kg/m2 89992.3 2 g 128/81 mm[Hg] egypt kelvin [place] [facility] 4 11:04:46 Date Recorded Body height Body mass index (BMI) Body weight Provider Name and Address Organization Details Last Updated DateTime 07/12/2023 175.26 cm 32.5 kg/m2 22390.32 g Ok Dorado PA-C [address], [place], [address], [place] [facility] 07/12/2023 09:12:57 Social History None recorded. Functional Status None recorded. Mental Status None recorded. Family History Nothing Reported. Medical History No medical history recorded. Past Encounters Encounter ID Performer Location Encounter Start Date Encounter Closed Date Diagnosis/Indication Diagnosis SNOMED-CT Code Diagnosis ICD10 Code Diagnosis IMO Codes Diagnosis Note [id number] SAMUEL Hernandes [address] [place] [address] 06/24/2023 10:53:21 06/24/2023 11:06:03 Osteoarthritis of right hip joint 0892953929 29556 M16.11 [id number] LLOYD Hutchins [address] [place] [address] 07/12/2023 09:07:01 07/12/2023 09:36:29 Aftercare 815641298 Z51.89 History of total replacement of right hip joint 8354192788 90497 Z96.641 Health Concerns Section Related Observation LastModified by Organization Detai ls LastModified Time None Recorded Concern Status LastModified by Organization Details LastModified Time None Recorded Advance Directives Directive None Recorded Payers Insurance Date Sequence Insurance Name Policy Number Policy Capps Covered Member ID Capps Member ID Guarantor Name 08/20/2023 1 [facility] [employer] - DOS ON OR AFTER 2022 - DUAL ELIGIBLE - [employer] AND ONE CARE (MEDICARE REPLACEMENT/ADV ANTAGE - HMO) Raffi Spencer [id number] Raffi Spencer 10/29/2023 1 [facility] [employer] - DOS ON OR AFTER 2022 - [employer]IONS (MEDICARE REPLACEMENT/ADV ANTAGE - HMO) Raffi Spencer [id number] Raffi Spencer 01/21/2025 1 [facility] [employer] - DOS ON OR AFTER 2022 - ONE CARE (MEDICARE REPLACEMENT/ADV ANTAGE - HMO) Raffi Spencer [id number] Raffi Spencer Notes Date Note Type Note Provider Name and Address Organization Details Recorded Time 07/12/2023 text/html I am seeing the patient today under the supervision of Brothers who was available but who did not see the patient. HPI: Patient returns follow-up 2 weeks postop right total hip replacement. Patient seems to be progressing well with therapy. Patient's pain seems to be controlled. Past family, medical, social history and review of systems has been reviewed, updated and is located in the patient s chart. Examination: No significant swelling warmth erythema about the right total hip. Incision is healing well. Range of motion of the right total hip: Flexion 90, internal 10, and external 10. Good strength about the right total hip. Peripheral, vascular, lymphatic examination, skin, neurological, coordination, reflexes, sensation are within normal limits. X-rays ordered, obtained and reviewed at [facility] 2 views of the right total hip demonstrate good implant interfaces in good alignment. Impression: 2 weeks status post right total hip replacement Plan: Reviewed x-rays. Reviewed postop protocols with the patient today in the office. Reviewed total hip precautions. Continue with therapy. Patient can wean from a walker to a cane as safe. Follow-up in 2 weeks to recheck the total hip replacement. Ok Dorado PA-C [address], [place], [address], [facility] - [facility] 07/12/2023 09:34:56
--- OUTSIDE RECORDS SUMMARY | 2025-01-29 17:11 | XMS_ITS ---
Author Organization [facility] an d Nursing Care Team Providers Care Physician Ophthalmologist Name Role Phone Benny Pedraza Unavailable Unavailable Allergies and adverse reactions Code CodeSystem Substance Reaction Severity StartDate Concern Status 791261433 SNOMED CT NGHIA Inhibitors Mild 06/30/2023 ac tive 6809 RXNORM metFORMIN Mild 06/30/2023 active Care Team Name Role Address Phone Organization Dates Benny Pedraza PCP [address] [place] [address], [address], [place] States (Office): : [facility] 06/30/2023 - 07/01/2023 Immunizations Immunization Status Vaccine Details Vaccine Code CodeSystem Alen e Notes Influenza cancelled Influenza, high-dose, split virus, quadrivalent, injectable, preservative free 197 CVX created date: 07/04/2023 consent date: 07/04/2023 PCV20 cancelled Pneumococcal conjugate vaccine 20-valent (PCV20), polysaccharide [id number] conjugate, adjuvant, preservative free 216 CVX created date: 07/04/2023 consent date: 07/04/2023 Insurance Providers Problems Problem # Description Date of onset Resolved Date Code CodeSystem Concern Status 1 AFTERCARE FOLLOWING JOINT REPLACEMENT SURGERY 06/30/[address] active 2 ANXIETY DISORDER, UNSPECIFIED 06/30/[address] active 3 BENIGN PROSTATIC HYPERPLASIA WITH LOWER URINARY TRACT SYMPTOMS 06/30/[address] active 4 CHONDROCOSTAL JUNCTION SYNDROME [TIETZE] 06/30/[address] active 5 ESSENTIAL (PRIMARY) HYPERTENSION 06/30/[address] active 6 HEADACHE, UNSPECIFIED 06/30/[address] active 7 HYPERLIPIDEMIA, UNSPECIFIED 06/30/[address] active 8 INFLAMMATORY POLYNEUROPATHY, UNSPECIFIED 06/30/[address] active 9 INSOMNIA, UNSPECIFIED 06/30/[address] active 10 MAJOR DEPRESSIVE DISORDER, RECURRENT, UNSPECIFIED 06/30/[address] active 11 OBSTRUCTIVE SLEEP APNEA (ADULT) (PEDIATRIC) 06/30/[address] active 12 PAIN IN THORACIC SPINE 06/30/[address] active 13 POST-TRAUMATIC STRESS DISORDER, UNSPECIFIED 06/30/[address] active 14 PRESENCE OF RIGHT ARTIFICIAL HIP JOINT 06/30/[address] active 15 TYPE 2 DIABETES MELLITUS WITHOUT COMPLICATIONS 06/30/[address] active 16 UNILATERAL PRIMARY OSTEOARTHRITIS, RIGHT HIP 06/30/[address] active Reason for Referral No Reasons for Referral Entered Social History Social History Observation Description Start Date End Date Code Code System Current Smoking Status Tobacco smoking consumption unknown 412707661 SNOMED CT Sex Assigned At Male 1965 78759-4 LOINC Gender Identity Sexual Orientation Vital Signs Code Code System Vitals Name Values and Units Timing Information 8462-4 LOINC Blood Pressure-Diastolic Value=80 Un its=mmHg 07/01/2023 8480-6 LOINC Blood Pressure-Systolic Yusbb=886 Un its=mmHg 07/01/2023 52425-3 LOINC O2 % BldC Oximetry Value=90.0 Units= % 07/01/2023 9279-1 [facility] Respiratory Rate Value=18.0 Units=/m in 07/01/2023 8867-4 [facility] Heart rate Zauck=276.0 Units=/min 07/01/2023 8302-2 [facility] Height Value=68.0 Units=Inches 07/01/2023 66818-5 [facility] Weight Rpjjj=789.0 Units=Lbs
--- OUTSIDE RECORDS SUMMARY | 2025-01-29 17:11 | XMS_ITS | Data Portability ---
Author Organization [place] - Pending sale to [facility] Address [address] [place] [id number] Care Team Providers Care Sampler Ovens Name Role Phone RIVAS MCCORMICK Primary Care Provider [phone] Assessment Encounter Date Assessment Date Assessment LastModified by Organization Details LastModified Time 04/28/2020 04/28/2020 Overview/History : 54yoM pmhx depression, anxiety, HTN, HDL is seen today for a COVID test. Patient's mother who is also being seen today is feeling unwell and being tested for COVID today. Denies fever, cough, cp, sob, abdominal pain. No known sick contact Exam: VSS patient well appearing heart and lung sounds clear abdomen soft and non tender DDx considered, but not limited to: covid Work up/Results: covid test pending Plan/Discussion: Patient is hemodynamically stable non toxic appearing seen today for a COVID test. Patient lives with his parents and his mother began feeling unwell and is being tested. Patient will continue to isolate. Precautions given to again seek care if he develops any medical complaints. Patient verbalized understanding and was agreeable with overall plan. Proper Personal Protective Equipment (PPE), including gloves, eye protection, N95 mask, gown, and shoe covers were donned and doffed appropriately and all equipment cleaned using approved technique with germicidal disposable wipes prior to and after care of this patient according to [facility]'s infection prevention protocols. Time On Scene with Patient: 00:35:36 [email or web address] Not available 04/28/2020 18:38:07 Plan of Treatment Reminders Order Date Submit Date Provider Last Modified By Organization Details Last Modified Time Details Appointments None recorded. Lab SARS CoV 2 RNA (COVID-19), QL, audit consultant-PCR, respiratory specimen 2020 021 CHRIS [facility] (Centralized Electronic Ordering - All Locations), Patient Can Go To The Location Of Their Choice, [id number] 23:59:10 Referral None recorded. Procedures None recorded. Surgeries None recorded. Imaging None recorded. Medication Orders None recorded. Patient TargetsNo targets recorded. Patient Instructions Encounter Date Encounter Id Patient Instructions Last Modified By Organization Details Last Modified Time 04/28/2020 [id number] vital signs and dc instructions were written out for the patient [email or web address] Not available 04/28/2020 18:38:21 Reason for Referral None Reported. Results Created Date Observation Date Name Description Value Unit Range Abnormal Flag Note LastModifiedBy Organization Detail LastModifiedTime 04/28/1904/29/2020 SARS CoV 2 RNA (COVI D-19) , QL, audit consultant-P CR, respi rator y speci men covid-19, (RT)-PCR (neg) NEGAT DEMARCUS 2018- novel Coron aviru s (2018nCoV ) not detec simón by the qRT-P CR assay . If clini corrine suspi cion for COVID -19 is high, lashon nue to maint ain preca ution s and consi edward repea t testi ng. Resul t repor simón to [facility]. This test has been autho rized by the FDA under an Emerg ency Use Autho rizat ion (EUA) for use by autho rized labor atori es. Test perfo rmed by Clini corrine [facility] or[facility] at the [facility] and Rossana samayoa, [address] [place] [address] . CLIA ID: [id number] , CAP: [id number] 96. Medic al Direc tor: Fernanda Hurd, PhD FAC (NOTE ) The CRSP SARS- CoV-2 Real- time Rever se Trans cript ase (RT)- PCR Diagn ostic Assay is a real- time RT-PC R test inten ded for the quali tativ e detec tion of nucle ic acid from the SARS- CoV-2 in nasop haryn geal and oroph aryng eal swabs colle cted from indiv idual s who may have contr acted the virus . Testi ng is limit ed to the Clini corrine [facility] at the [facility] t[facility] which is certi fied under the Clini corrine Labor atory Impro vemen t Amend ments of 1987 (CLIA ), 42 U.S.C . ?263a , to perfo rm high compl exity tests . = Posit demarcus resul ts are indic ative of activ e infec tion with SARS- CoV-2 but do not rule out bacte rial infec tion or co-in fecti on with other virus es. The agent detec simón may not be the defin ite cause of disea se. In addit ion, nucle ic acid detec tion can persi st follo wing clear ance of activ e viral repli catio n. Labor atori es withi n the [place] s and its yovanny xiomara s are requi red to repor t all posit demarcus resul ts to the appro priat e publi c healt h autho ritie s. = Negat demarcus resul ts do not precl ude SARS- CoV-2 infec tion and shoul d not be used as the sole basis for patie nt treat ment or other patie nt manag ement decis ions. Negat demarcus resul ts must be combi toi with clini corrine obser vatio ns, patie nt histo ry, and epide miolo gical infor matio n. Not Available [facility] (Centralized Electronic Ordering - All Locations) Patient Can Go To The Location Of Their Choice, [id number] 04/29/2020 23:59:10 Result Notes None recorded. Procedures Surgical History Date Name Laterality Status Provider Name and Address Organization Details Recorded Time operation on lumbar spine completed DRAKE LEAL [address] [place], [address], [place] [facility] 04/28/2020 18:30:35 operation on hip joint completed DRAKE LEAL [address], [place], [address], [place] [facility] 04/28/2020 18:30:56 cholecystectomy completed DRAKE LEAL [address], [place], [address], [place] [facility] 04/28/2020 18:31:06 Imaging Results None recorded. Procedure Notes None recorded. Medical Equipment None Reported. Allergies No known drug allergies Medications Name Sig Start Date Stop Date Status Note LastModified by Organization Details LastModified Time sumatriptan 100 mg tablet TK 1 T PO D PRF MIGRAINE CATALAN 04/28 completed Not Available Not Available Not Available clonidine HCl 0.3 mg tablet 04/28 completed Not Available Not Available Not Available sumatriptan 50 mg tablet TK 1 T PO D PRF MIGRAINE CATALAN 04/28 completed Not Available Not Available Not Available topiramate 25 mg tablet TAKE 1 TABLET BY MOUTH ONCE DAILY IN THE MORNING active Not Available Not Available No t Available amlodipine 5 mg tablet active Not Available Not Available Not Available quetiapine 100 mg tablet active Not Available Not Available Not Available simvastatin 40 mg tablet active Not Available Not Available Not Available zonisamide 100 mg capsule TK 1 C PO D active Not Available Not Available No t Available trazodone 100 mg tablet active Not Available Not Available Not Available trazodone 150 mg tablet active Not Available Not Available Not Available omeprazole 20 mg capsule,del ayed release active Not Available Not Available Not Available diclofenac sodium 75 mg tablet,zoe yed release TK 1 T PO BID WITH FOOD PRFPAIN active Not Available Not Available No t Available hydroxyzine HCl 25 mg tablet active Not Available Not Available Not Available fluticasone propionate 50 mcg/actuati on nasal spray,suspe nsion SHAKE LQ AND U 1 SPR IEN D active Not Available Not Available No t Available sertraline 50 mg tablet active Not Available Not Available Not Available dicyclomine 10 mg capsule 04/28 completed Not Available Not Available Not Available zonisamide 25 mg capsule TAKE 2 CAPSULES BY MOUTH AT BEDTIME AFTER STOPPING TOPAMAX active Not Available Not Available No t Available topiramate 50 mg tablet TAKE 1 TABLET BY MOUTH DAILY AT BEDTIME active Not Available Not Available No t Available BD Ultra-Fine Short Pen Needle 31 gauge x 5/16 USE DIRECTED DAILY WITH INSULIN PEN active Not Available Not Available No t Available melatonin 5 mg tablet 04/28 completed Not Available Not Available Not Available Levemir FlexTouch U-100 Insulin 100 unit/mL (3 mL) subcutaneou s pen ADMINISTE R 15 UNITS UNDER THE SKIN DAILY active Not Available Not Available No t Available Vitals Date Recorded Oxygen saturation Oxygen saturation in Arterial blood by Pulse oximetry Respiratory rate Body temperature Heart rate Systolic And Diastolic Provider Name and Address Organization Details Last Updated DateTime 98 % 98 % 16 /min 97.6 [degF] 72 /min 130/90 mm[Hg] Not Available [facility] 17:40:33 Social History Question Answer Notes LastModified by Organizat ion Details LastModified Time Tobacco Smoking Status Never Smoker DRAKE LEAL [address] [place] [address], [address], [place] [facility] 04/28/2020 18:29:46 Do You Have An Advance Directive? No [email or web address] Information not available 04/28/2020 What Is Your Code Status? Full Code [email or web address] Information not available 04/28/2020 Within The Past 12 Months, Has It Happened That The Food You Bought Just Didn't Last And You Didn't Have Money To Get More. No [email or web address] Information not available 04/28/2020 Within The Past 12 Months, Have You Worried That Your Food Would Run Out Before You Got Money To Buy More. No [email or web address] Information not available 04/28/2020 Fall Risk: Do You Feel Unsteady When Standing Or Walking? No Information not available 04/28/2020 We Know That How And When People Interact With Friends And Family Can Be Very Different From Person To Person. How Often Do You Have The Opportunity To See Or Talk To People That You Care About And Feel Close To? (Ex: Talking To Friends On The Phone Or Visiting Friends Or Family Or Going To Jew Or Club Meetings) 5 Or More Times Per Week [email or web address] Information not available 04/28/2020 Excessive Alcohol Or Drug Use No [email or web address] Information not available 04/28/2020 We Know From Many Of Our Patients That Covering All Of Their Costs Can Be Difficult At Times. This Can Cause Stress And Impact Health. In The Past Year, Have You Been Unable To Get Any Of The Following When It Was Really Needed? No [email or web address] Information not available 04/28/2020 What Is Your Housing Situation Today? I Have Housing Information not available 04/28/2020 Would You Like Help Connecting To Resources? None [email or web address] Information not available 04/28/2020 How Much Tobacco Do You Smoke? No [email or web address] Information not available 04/28/2020 Sex: Unknown Functional Status None recorded. Mental Status None recorded. Family History Relationship Description Onset Age of this Age Resolved Age Notes LastModified by Organization Details LastModified Time Mother Hypertensive disorder Not available 2020 18:27:51 Medical History Condition Response Coronary Artery Disease N COPD N Depression Y Diabetes Y Cancer N Stroke N Asthma N High Cholesterol Y Pulmonary Embolism N Hypertension N Kidney Disease N Past Encounters Encounter ID Performer Location Encounter Start Date Encounter Closed Date Diagnosis/Indication Diagnosis SNOMED-CT Code Diagnosis ICD10 Code Diagnosis IMO Codes Diagnosis Note [id number] [facility]RAKE LEAL [facility] [address] [facility] [place] [address] 04/28/2020 17:10:39 05/01/2020 23:34:27 Exposure to communicable disease 725101296 Z20.822 Health Concerns Section Related Observation LastModified by Organization Detai ls LastModified Time None Recorded Concern Status LastModified by Organization Details LastModified Time None Recorded Advance Directives Directive N: Payers Insurance Date Sequence Insurance Name Policy Number Policy Capps Covered Member ID Capps Member ID Guarantor Name 04/27/2020 1 *SELF PAY* Raffi Spencer [id number] Raffi Spencer 05/01/2020 1 [place] [employer] Raffi Spencer [id number] Raffi Spencer 04/27/2020 2 [facility] - PRO CLAIM PLUS (PPO) Raffi Spencer [id number] Raffi Spencer 05/01/2020 1 [facility] - DOS PRIOR TO 2022 - DUAL ELIGIBLE (MEDICARE REPLACEMENT/ADV ANTAGE - HMO) Raffi Spencer [id number] Raffi Spencer
--- OUTSIDE RECORDS SUMMARY | 2025-01-29 17:11 | XMS_ITS | Continuity of Care Document ---
Author Name [facility], Medical Address [address] [place] [address] Organization Unknown Address [address] [place] [address] Medications No known medications Problems No known problems
--- OUTSIDE RECORDS SUMMARY | 2025-01-29 17:11 | XMS_ITS | Encounter Summary ---
Author Organization [facility] Address [address] [place] [address] Care Team Providers Care Fitter Tacker Name Role Phone Physician, No Pcp Primary Care Provider Unavaila ble Encounter Details Date Type Department Care Team (Late st Contact Info) Description 10/14/2024 Lab Requisition [facility] - Main Lab [address] [facility] [place] [address] William Domingo, DRAKE [address], [address] [place] [address] Urinary tract infection, site not specified Social History Tobacco Use Types Packs/Day Years [...] Description 06/25/2025 11:00 AM EDT Ancillary Procedure [facility] - [facility] [address] [facility] [address] [place] [address] 07/01/2025 11:00 AM EDT Office Visit Vascular Surgery - [place] [address] [facility] [address] [place] [address] Wisam Samuel MD [address] [facility] [address] [place] [address] documented as of this encounter Procedures Procedure Name Priority Date/Time Associated Diagnosis Comments CULTURE URINE Routine 10/14/2024 12:00 AM EDT Urinary tract infection, site not specified documented in this encounter Results * Culture urine (10/14/2024 12:00 AM EDT) Culture, Urine No growth 10/15/2024 1:13 PM EDT [facility] ([facility]) [facility] Urine Indwelling urinary catheter / Unknown 10/14/2024 10/14/2024 5:58 PM EDT us William [facility] MICROBIOLOGY - GENERAL KURT GARCIA Final Result [facility] ([facility] [address] [place] [address], documented in this encounter Visit Diagnoses Diagnosis Urinary tract infection, site not specified documented in this encounter Additional Health Concerns Infection Onset Date Last 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
== END 2025-01-29 16:18 | disposition home or self-care (01) ==
PROVIDERS: Emergency Provider Emergency Medicine
DX: S30.0XXA Contusion of lower back and pelvis, initial encounter (principal); M54.50 Low back pain, unspecified; I25.10 Atherosclerotic heart disease of native coronary artery without angina pectoris; W10.9XXA Fall (on) (from) unspecified stairs and steps, initial encounter; Y93.9 Activity, unspecified; Y92.9 Unspecified place or not applicable; Y99.8 Other external cause status; Z98.84 Bariatric surgery status; Z79.899 Other long term (current) drug therapy
CPT/HCPCS: 72100; 99282; 99283

== ENCOUNTER → 2025-01-29 15:09 | Outpatient (BNV) | payer OTHER, SELFPAY | PROVIDERS: Emergency Provider Emergency Medicine; Visit Provider Radiology Diagnostic Radiology | DX: M54.50 Low back pain, unspecified (principal); Z98.1 Arthrodesis status; Z04.3 Encounter for examination and observation following other accident | CPT/HCPCS: 72100 ==